=== PATIENT | male | born 1955 | race Caucasian/White ===

== ENCOUNTER → 2017-04-12 | Outpatient (CLI) | payer OTHER ==
[2017-04-12 17:09] LABS: BUN/Creatinine Ratio 13.6; Calcium 9.3 mg/dL (8.5-10.1); Potassium 4.7 mmol/L (3.5-5.1)
[2017-04-12 17:19] LABS: B-Type Natriuretic Peptide 12.72 pg/mL (0-100)
== END | disposition home or self-care (01) ==
LOC: LAB 11:22
PROVIDERS: ATTEND Internal Medicine Cardiovascular Disease
DX: I10 Essential (primary) hypertension (principal); I50.9 Heart failure, unspecified
CPT/HCPCS: 36415; 80048; 83880

== ENCOUNTER → 2017-04-27 | Outpatient (CLI) | payer OTHER | END | disposition home or self-care (01) | LOC: Rad HDHVI 15:39 | PROVIDERS: ATTEND Internal Medicine Cardiovascular Disease | DX: I73.9 Peripheral vascular disease, unspecified (principal); E78.2 Mixed hyperlipidemia | CPT/HCPCS: 93306; 93880; 93926 ==

== ENCOUNTER → 2017-08-16 | Outpatient (CLI) | payer OTHER | END | disposition home or self-care (01) | LOC: Rad HDHVI 11:32 | PROVIDERS: ATTEND Internal Medicine Cardiovascular Disease | DX: D71 Functional disorders of polymorphonuclear neutrophils (principal); R91.8 Other nonspecific abnormal finding of lung field | CPT/HCPCS: 71020 ==

== ENCOUNTER → 2017-09-02 | Outpatient (CLI) | payer OTHER ==
[2017-09-02 15:59] LABS: Urine Blood Negative /uL (Negative); Urine Specific Gravity 1.021 (1.001-1.035)
[2017-09-02 16:11] LABS: Alanine Aminotransferase 52 U/L (16-61); Albumin 3.4 g/dL (3.4-5.0); Alkaline Phosphatase 41 U/L (45-117); Anion Gap 15 (5-15); Aspartate Aminotransferase 34 U/L (15-37); BUN/Creatinine Ratio 14.8; Bilirubin, Direct < 0.1 mg/dL (0-0.2); Bilirubin, Total 0.3 mg/dL (0.2-1.0); Blood Urea Nitrogen 23 mg/dL (7-18); Calcium 9.1 mg/dL (8.5-10.1); Carbon Dioxide 21 mmol/L (21-32); Chloride 103 mmol/L (98-107); Cholesterol 178 mg/dL (< 200); GFR African American 59 mL/min; GFR Non-African American 49 mL/min; Glucose 164 mg/dL (74-106); HDL Cholesterol 39 mg/dL (40-59); Potassium 4.4 mmol/L (3.5-5.1); Sodium 139 mmol/L (136-145); Total Protein 7.2 g/dL (6.4-8.2); Triglycerides 590 mg/dL (< 150)
== END | disposition home or self-care (01) ==
LOC: LAB 08:00
PROVIDERS: ATTEND Internal Medicine Cardiovascular Disease
DX: I10 Essential (primary) hypertension (principal); E11.9 Type 2 diabetes mellitus without complications; E78.00 Pure hypercholesterolemia, unspecified; D64.9 Anemia, unspecified; E03.9 Hypothyroidism, unspecified; E55.9 Vitamin D deficiency, unspecified; R53.81 Other malaise; R97.20 Elevated prostate specific antigen [PSA]; K74.1 Hepatic sclerosis; N39.0 Urinary tract infection, site not specified
CPT/HCPCS: 36415; 80048; 80061; 80076; 81003; 82306; 83036; 84153; 84403; 84443

== ENCOUNTER → 2017-12-29 | Outpatient (CLI) | payer OTHER ==
[~2017-12-29] MED LIST: IOHEXOL 350 MG/ML 100ML IJ ONE; SODIUM CHLORIDE 0.9% 1,000 ML IV SCH
[2017-12-29 11:05] VITALS: BP 149/84
[2017-12-29 12:45] VITALS: BP 152/88
[2017-12-29 16:07] LABS: Urine Blood Negative /uL (Negative); Urine Specific Gravity 1.034 (1.001-1.035)
[2017-12-29 16:20] LABS: Basophils # (auto) 0 uL; Basophils % (auto) 0.7 % (0.0-2.0); Eosinophils # (auto) 0 uL; Eosinophils % (auto) 0.8 % (0.0-7.0); Hematocrit 32.5 % (41.0-53.0); Hemoglobin 11.4 g/dL (13.5-17.5); Lymphocytes # (auto) 0.8 uL; Lymphocytes % (auto) 11.9 % (10.0-50.0); Mean Corpuscular Hemoglobin 33.2 pg (28.0-32.0); Mean Corpuscular Hgb Conc. 35.2 g/dL (32.0-36.0); Mean Corpuscular Volume 94.3 fL (80.0-100.0); Monocytes # (auto) 0.7 uL; Neutrophils # (auto) 4.9 uL; Neutrophils % (auto) 75.6 % (37.0-80.0); Nucleated Red Blood Cells % 0.2 %; Platelet Count (auto) 166 10^3/uL (140-450); Red Blood Cells 3.44 10^6/uL (4.5-5.90); Red Cell Distribution Width 14.6 % (11.8-14.3); White Blood Cell 6.5 10^3/uL (4.4-10.8)
[2017-12-29 16:25] LABS: Free T4 (Free Thyroxine) 0.8 ng/dL (0.89-1.76)
[2017-12-29 16:27] LABS: Albumin 3.2 g/dL (3.4-5.0); BUN/Creatinine Ratio 12.6; Bilirubin, Total 0.4 mg/dL (0.2-1.0); Calcium 8.7 mg/dL (8.5-10.1); Potassium 4.7 mmol/L (3.5-5.1); Total Protein 6.9 g/dL (6.4-8.2)
== END | disposition home or self-care (01) ==
LOC: Rad HDHVI 10:49
PROVIDERS: ATTEND Internal Medicine
DX: E78.5 Hyperlipidemia, unspecified (principal); D64.9 Anemia, unspecified; I10 Essential (primary) hypertension; E11.9 Type 2 diabetes mellitus without complications; E55.9 Vitamin D deficiency, unspecified; E03.9 Hypothyroidism, unspecified; R53.81 Other malaise; R97.20 Elevated prostate specific antigen [PSA]; D51.9 Vitamin B12 deficiency anemia, unspecified; N39.0 Urinary tract infection, site not specified; R51 Headache
CPT/HCPCS: 36415; 70470; 80053; 80061; 81003; 82306; 82565; 82607; 82962; 83036; 84403; 84439; 84443; 85025; 96360; G0463; Q9967

== ENCOUNTER → 2018-01-25 | Outpatient (CLI) | payer OTHER | END | disposition home or self-care (01) | LOC: LAB 11:13 | PROVIDERS: ATTEND Internal Medicine Cardiovascular Disease | DX: D35.2 Benign neoplasm of pituitary gland (principal); E11.9 Type 2 diabetes mellitus without complications; I10 Essential (primary) hypertension; E78.5 Hyperlipidemia, unspecified; E03.9 Hypothyroidism, unspecified | CPT/HCPCS: 84146 ==

== ENCOUNTER → 2018-05-06 | Outpatient (CLI) | payer OTHER ==
[2018-05-06 12:57] LABS: Albumin 3.7 g/dL (3.4-5.0); BUN/Creatinine Ratio 16.5; Bilirubin, Total 0.3 mg/dL (0.2-1.0); Potassium 4.3 mmol/L (3.5-5.1); Uric Acid 6.6 mg/dL (3.5-7.2)
== END | disposition home or self-care (01) ==
LOC: LAB 09:09
PROVIDERS: ATTEND Internal Medicine
DX: M10.9 Gout, unspecified (principal); E11.9 Type 2 diabetes mellitus without complications; I10 Essential (primary) hypertension
CPT/HCPCS: 36415; 80053; 83036; 84550

== ENCOUNTER → 2018-06-28 | Outpatient (CLI) | payer OTHER ==
[2018-06-28 12:32] LABS: Calcium 9.1 mg/dL (8.5-10.1); Potassium 4.3 mmol/L (3.5-5.1)
[2018-06-28 12:36] LABS: BUN/Creatinine Ratio 9.8
== END | disposition home or self-care (01) ==
LOC: LAB 09:19
PROVIDERS: ATTEND Internal Medicine
DX: E11.9 Type 2 diabetes mellitus without complications (principal); I10 Essential (primary) hypertension
CPT/HCPCS: 36415; 80048; 83036

== ENCOUNTER → 2019-06-26 | Outpatient (CLI) | payer OTHER ==
[2019-06-26 16:02] LABS: Urine Blood Negative /uL (Negative); Urine Specific Gravity 1.007 (1.001-1.035)
[2019-06-26 16:12] LABS: Basophils # (auto) 0.1 uL; Basophils % (auto) 1.3 % (0.0-2.0); Eosinophils # (auto) 0.2 uL; Hematocrit 41.4 % (41.0-53.0); Hemoglobin 14.1 g/dL (13.5-17.5); Lymphocytes # (auto) 1.7 uL; Lymphocytes % (auto) 22.5 % (10.0-50.0); Mean Corpuscular Hgb Conc. 34.2 g/dL (32.0-36.0); Mean Corpuscular Volume 93.8 fL (80.0-100.0); Monocytes # (auto) 0.8 uL; Neutrophils # (auto) 4.9 uL; Neutrophils % (auto) 64.2 % (37.0-80.0); Nucleated Red Blood Cells % 0.3 %; Platelet Count (auto) 211 10^3/uL (140-450); Red Blood Cells 4.41 10^6/uL (4.5-5.90); Red Cell Distribution Width 15.6 % (11.8-14.3); White Blood Cell 7.7 10^3/uL (4.4-10.8)
[2019-06-26 16:26] LABS: Free T4 (Free Thyroxine) 0.92 ng/dL (0.89-1.76); Prostate Specific Antigen 0.36 ng/mL (0.0-4.0)
[2019-06-26 16:28] LABS: Alanine Aminotransferase 59 U/L (16-61); Albumin 3.6 g/dL (3.4-5.0); Alkaline Phosphatase 52 U/L (45-117); Anion Gap 10 (5-15); Aspartate Aminotransferase 38 U/L (15-37); BUN/Creatinine Ratio 13.8; Bilirubin, Total 0.3 mg/dL (0.2-1.0); Blood Urea Nitrogen 22 mg/dL (7-18); Calcium 9.4 mg/dL (8.5-10.1); Carbon Dioxide 20 mmol/L (21-32); Chloride 108 mmol/L (98-107); Cholesterol 183 mg/dL (< 200); GFR African American 56 mL/min; GFR Non-African American 47 mL/min; Glucose 115 mg/dL (74-106); HDL Cholesterol 40 mg/dL (40-59); Potassium 4.5 mmol/L (3.5-5.1); Sodium 138 mmol/L (136-145); Triglycerides 528 mg/dL (< 150)
== END | disposition home or self-care (01) ==
LOC: LAB 13:06
PROVIDERS: ATTEND Internal Medicine Cardiovascular Disease
DX: Z00.00 Encounter for general adult medical examination without abnormal findings (principal); E11.9 Type 2 diabetes mellitus without complications; E03.9 Hypothyroidism, unspecified; K90.9 Intestinal malabsorption, unspecified; C61 Malignant neoplasm of prostate; E29.1 Testicular hypofunction; N39.0 Urinary tract infection, site not specified; D51.9 Vitamin B12 deficiency anemia, unspecified; Z79.899 Other long term (current) drug therapy
CPT/HCPCS: 36415; 80053; 80061; 81003; 82306; 82607; 83036; 84153; 84403; 84439; 84443; 85025

== ENCOUNTER → 2019-06-27 | Outpatient (CLI) | payer OTHER ==
[~2019-06-27] MED LIST changes: -SODIUM CHLORIDE 0.9% 1,000 ML IV SCH; +SODIUM CHLORIDE 0.9% 500 ML IV ONE
[2019-06-27 09:00] VITALS: BP 132/79
--- NOTE | 2019-06-27 09:24 | NUR ---
CHF PT ARRIVED AT THE CHF CLINIC FOR HYDRATION DUE TO HIGH CREATINE ON 06/26/19 OF 1.6. PT IS ALSO TAKING METFORMIN AND WAS ADVISED LAST NIGHT TO HOLD IT AND HYDRATE, PT VERBALIZED UNDERSTANDING. VSS
--- NOTE | 2019-06-27 09:30 | NUR ---
IV insertion IV access obtained, via clean sterile technique by inserting 20 gauge catheter at after attempt(s). IV secured properly. No trauma to site. Patient tolerated procedure well.
--- NOTE | 2019-06-27 10:27 | NUR ---
EDUCATION QASIM RN DISCUSSING COMPLETE MEDICAL HISTORY WITH PT, PLAN OF CARE, DISEASE PROCESS AND FURTHER TREATMENT PLAN. PT VERBALIZED UNDERSTANDING
--- NOTE | 2019-06-27 11:23 | NUR ---
IV removal IV DC'd with sterile technique, catheter fully intact. Pressure dressing applied to site. Patient tolerated procedure well. Discharged with aftercare instructions per MD. NOTE:
[2019-06-27 11:28] VITALS: BP 133/80
--- NOTE | 2019-06-27 11:28 | NUR ---
Discharge Instructions See e-MAR for any mediations given with this visit. Patient education given on disease process. Patient verbalized understanding. Previous labs reviewed. Patient discharged in stable condition with after care instructions and follow up appointment. MEDICATIONS NS IV
== END | disposition home or self-care (01) ==
LOC: Rad HDHVI 08:25
PROVIDERS: ATTEND Internal Medicine Cardiovascular Disease
DX: I11.0 Hypertensive heart disease with heart failure (principal); I50.9 Heart failure, unspecified; R94.4 Abnormal results of kidney function studies; E78.00 Pure hypercholesterolemia, unspecified; E11.9 Type 2 diabetes mellitus without complications; E03.9 Hypothyroidism, unspecified; C61 Malignant neoplasm of prostate; Z79.899 Other long term (current) drug therapy; Z87.891 Personal history of nicotine dependence
CPT/HCPCS: 36415; 82565; 83880; 93306; 96360; 96361; G0463; J7040; Q9967

== ENCOUNTER → 2019-07-05 | Outpatient (CLI) | payer OTHER ==
[~2019-07-05] VITALS: Ht 188 cm; Wt 134.3 kg
[~2019-07-05] MED LIST changes: +ADENOSINE 113 MG in GIVE UN-DILUTED 0 ML IV ONE; +ADENOSINE 90 MG/30 ML INJ IV ONE; -IOHEXOL 350 MG/ML 100ML IJ ONE; -SODIUM CHLORIDE 0.9% 500 ML IV ONE
== END | disposition home or self-care (01) ==
LOC: Rad HDHVI 09:32
PROVIDERS: ATTEND Internal Medicine Cardiovascular Disease
DX: E11.9 Type 2 diabetes mellitus without complications (principal); I10 Essential (primary) hypertension; E78.00 Pure hypercholesterolemia, unspecified; F17.200 Nicotine dependence, unspecified, uncomplicated
CPT/HCPCS: 78452; 93005; 96374; 96375; A9500; J0153

== ENCOUNTER → 2020-03-22 | Outpatient (CLI) | payer OTHER ==
[~2020-03-22] MED LIST changes: -ADENOSINE 113 MG in GIVE UN-DILUTED 0 ML IV ONE; -ADENOSINE 90 MG/30 ML INJ IV ONE; +ALPR0.25 PO; +FURO40TA4 PO; +HYDR-4833 PO; +LISI40TA11 PO; +METF-370 PO; +METO-6 PO; +PRAV20TA3 PO
== END | disposition home or self-care (01) ==
LOC: Rad HDHVI 12:59
PROVIDERS: ATTEND Internal Medicine Cardiovascular Disease
DX: R16.0 Hepatomegaly, not elsewhere classified (principal); D73.89 Other diseases of spleen; K57.30 Diverticulosis of large intestine without perforation or abscess without bleeding; J84.10 Pulmonary fibrosis, unspecified; R39.89 Other symptoms and signs involving the genitourinary system
CPT/HCPCS: 74176

== ENCOUNTER → 2020-03-26 | Outpatient (CLI) | payer OTHER ==
[2020-03-26 14:26] LABS: Urine Blood Negative /uL (Negative); Urine Specific Gravity 1.011 (1.001-1.035)
== END | disposition home or self-care (01) ==
LOC: LAB 14:09
PROVIDERS: ATTEND Internal Medicine Cardiovascular Disease
DX: N39.0 Urinary tract infection, site not specified (principal)
CPT/HCPCS: 81003

== ENCOUNTER → 2020-04-29 | Outpatient (CLI) | payer OTHER ==
[2020-04-29 09:30] VITALS: BP 123/68
--- NOTE | 2020-04-29 09:30 | NUR ---
CLINIC PT ARRIVED TO THE CHF CLINIC FOR PRE OP EKG, LABS, AND CXR, A/OX4, AMBULATORY. BREATHING IS EVEN AND UNLABORED.
--- NOTE | 2020-04-29 09:46 | NUR ---
EKG DONE BY RENU FOLEY REVIEWED BY DAVINA DOHERTY SR 65
[2020-04-29 09:55] VITALS: BP 113/61
--- NOTE | 2020-04-29 09:55 | NUR ---
Pre-Op Discharge Summary: See e-MAR for any medications given for this visit. Pre-op orders received and carried out per MD of EKG, LABS and chest xrays. Patient given a copy of EKG with instructions to go to [facility] out patient for further follow up care. NOTE EKG DONE BY RENU FOLEY REVIEWED BY DAVINA DOHERTY
[2020-04-29 12:23] LABS: Basophils # (auto) 0.1 10 ^3/uL (0-0.2); Basophils % (auto) 1.5 % (0.0-2.0); Eosinophils # (auto) 0.3 10 ^3/uL (0-0.8); Eosinophils % (auto) 4.2 % (0.0-7.0); Hematocrit 40.8 % (41.0-53.0); Hemoglobin 13.6 g/dL (13.5-17.5); Lymphocytes % (auto) 26.8 % (10.0-50.0); Mean Corpuscular Hemoglobin 31.7 pg (28.0-32.0); Mean Corpuscular Hgb Conc. 33.4 g/dL (32.0-36.0); Mean Corpuscular Volume 94.9 fL (80.0-100.0); Monocytes # (auto) 0.8 10 ^3/uL (0-1.3); Neutrophils # (auto) 4.1 10 ^3/uL (1.6-8.6); Neutrophils % (auto) 56.5 % (37.0-80.0); Nucleated Red Blood Cells % 0.1 %; Platelet Count (auto) 208 10^3/uL (140-450); Red Cell Distribution Width 15.3 % (11.8-14.3); White Blood Cell 7.3 10^3/uL (4.4-10.8)
[2020-04-29 12:38] LABS: INR 0.95 (0.9-1.15); Partial Thromboplastin Time 27.2 sec (23.0-31.2)
[2020-04-29 12:46] LABS: BUN/Creatinine Ratio 14.2; Calcium 9.4 mg/dL (8.5-10.1); Potassium 4.3 mmol/L (3.5-5.1)
== END | disposition home or self-care (01) ==
LOC: Rad HDHVI 09:20
PROVIDERS: ATTEND Internal Medicine Cardiovascular Disease
DX: Z01.812 Encounter for preprocedural laboratory examination (principal); R91.1 Solitary pulmonary nodule; J84.10 Pulmonary fibrosis, unspecified; I20.0 Unstable angina; I50.9 Heart failure, unspecified; I70.0 Atherosclerosis of aorta
CPT/HCPCS: 36415; 71046; 80048; 85025; 85610; 85730; 93005; G0463

== ENCOUNTER 2020-05-02 07:07 | Day surgery (SDC) | payer OTHER ==
[2020-05-02] MEDS ORDERED: IOHEXOL 350 MG/ML 100ML IJ ONE (07:59)
[2020-05-02] MEDS ORDERED: LIDOCAINE 2%HCL (LOCAL ANESTH.) INJ 20ML MDV ONE (07:59)
[2020-05-02] MEDS ORDERED: ANGIOMAX 250 MG VIAL IV ONE (09:01)
[2020-05-02] MEDS ORDERED: fentaNYL CITRATE 100 MCG/2 ML VL ONE (09:02)
[2020-05-02] MEDS ORDERED: MIDAZOLAM HCL 1MG/1ML-2 ML VIAL ONE (09:02)
[2020-05-02] MEDS ORDERED: SODIUM CHL 0.9% 50 ML ONE (09:10)
[2020-05-02] MEDS ORDERED: NITROGLYCERIN 5MG/ML 10ML VIAL IV ONE (09:11)
[2020-05-02] MEDS ORDERED: ATROPINE SULF 1 MG/10ml SYR ONE (09:31)
[2020-05-02] MEDS ORDERED: ACETAMINOPHEN 500 MG TAB PO PRN (10:15)
[2020-05-02] MEDS ORDERED: ONDANSETRON HCL 4 MG/2 ML VIAL IV PRN (10:15)
[2020-05-02] MEDS ORDERED: HYDROcodone-ACET 5/325MG TAB PO PRN (10:15)
== END 2020-05-02 12:05 | disposition home or self-care (01) ==
LOC: CATH 07:07
PROVIDERS: ATTEND Internal Medicine Cardiovascular Disease
DX: R06.02 Shortness of breath (principal); E11.40 Type 2 diabetes mellitus with diabetic neuropathy, unspecified; E78.5 Hyperlipidemia, unspecified; G47.33 Obstructive sleep apnea (adult) (pediatric); F17.210 Nicotine dependence, cigarettes, uncomplicated; E11.22 Type 2 diabetes mellitus with diabetic chronic kidney disease; I13.0 Hypertensive heart and chronic kidney disease with heart failure and stage 1 through stage 4 chronic kidney disease, or unspecified chronic kidney disease; N18.3 Chronic kidney disease, stage 3 (moderate); Z20.828 Contact with and (suspected) exposure to other viral communicable diseases; Z79.899 Other long term (current) drug therapy; Z98.890 Other specified postprocedural states
CPT/HCPCS: 36415; 87426; 93458; C1760; C1894; J1644; J2250; J3010; J7030; Q9967; 99152; J3490

== ENCOUNTER → 2020-10-08 | Outpatient (CLI) | payer OTHER | END | disposition home or self-care (01) | LOC: Rad HDHVI 14:18 | PROVIDERS: ATTEND Internal Medicine Cardiovascular Disease | DX: R94.4 Abnormal results of kidney function studies (principal) | CPT/HCPCS: 36415; 82565 ==

== ENCOUNTER → 2020-10-09 | Outpatient (CLI) | payer OTHER ==
[~2020-10-09] MED LIST changes: +IOHEXOL 350 MG/ML 100ML IJ ONE; +SODIUM CHLORIDE 0.9% 500 ML IV ONE
[2020-10-09 15:05] VITALS: BP 132/75
[2020-10-09 17:09] VITALS: BP 128/66
== END | disposition home or self-care (01) ==
LOC: Rad HDHVI 14:59
PROVIDERS: ATTEND Internal Medicine Cardiovascular Disease
DX: R51.9 Headache, unspecified (principal); R94.4 Abnormal results of kidney function studies
CPT/HCPCS: 70470; 96360; G0463; J7040; Q9967

== ENCOUNTER → 2020-11-26 | Outpatient (CLI) | payer OTHER ==
[~2020-11-26] MED LIST changes: -IOHEXOL 350 MG/ML 100ML IJ ONE; -SODIUM CHLORIDE 0.9% 500 ML IV ONE
[2020-11-26 12:04] LABS: Urine Blood TRACE /uL (Negative); Urine Specific Gravity 1.016 (1.001-1.035)
[2020-11-26 12:06] LABS: Potassium 4.5 mmol/L (3.5-5.1)
[2020-11-26 12:09] LABS: Basophils # (auto) 0.1 10 ^3/uL (0-0.2); Eosinophils # (auto) 0.2 10 ^3/uL (0-0.8); Eosinophils % (auto) 3.5 % (0.0-7.0); Hematocrit 38.1 % (41.0-53.0); Hemoglobin 13.4 g/dL (13.5-17.5); Lymphocytes # (auto) 1.5 10 ^3/uL (0.4-5.4); Lymphocytes % (auto) 21.6 % (10.0-50.0); Mean Corpuscular Hemoglobin 32.6 pg (28.0-32.0); Mean Corpuscular Hgb Conc. 35.3 g/dL (32.0-36.0); Mean Corpuscular Volume 92.5 fL (80.0-100.0); Monocytes # (auto) 0.8 10 ^3/uL (0-1.3); Monocytes % (auto) 11.9 % (0.0-12.0); Neutrophils # (auto) 4.3 10 ^3/uL (1.6-8.6); Nucleated Red Blood Cells % 0.3 %; Platelet Count (auto) 185 10^3/uL (140-450); Red Blood Cells 4.12 10^6/uL (4.5-5.90); Red Cell Distribution Width 14.2 % (11.8-14.3); White Blood Cell 7.1 10^3/uL (4.4-10.8)
[2020-11-26 12:14] LABS: Free T4 (Free Thyroxine) 0.96 ng/dL (0.89-1.76); Prostate Specific Antigen 0.26 ng/mL (0.0-4.0)
[2020-11-26 12:20] LABS: Albumin 3.4 g/dL (3.4-5.0); Bilirubin, Total 0.4 mg/dL (0.2-1.0); Calcium 9.1 mg/dL (8.5-10.1); Total Protein 7.4 g/dL (6.4-8.2)
== END | disposition home or self-care (01) ==
LOC: LAB 09:18
PROVIDERS: ATTEND Internal Medicine Cardiovascular Disease
DX: C61 Malignant neoplasm of prostate (principal); D51.3 Other dietary vitamin B12 deficiency anemia; D64.9 Anemia, unspecified; E11.9 Type 2 diabetes mellitus without complications; E55.9 Vitamin D deficiency, unspecified; I10 Essential (primary) hypertension; R00.2 Palpitations; R53.1 Weakness; R30.0 Dysuria
CPT/HCPCS: 36415; 80053; 80061; 81003; 82306; 82607; 83036; 84153; 84403; 84439; 84443; 85025

== ENCOUNTER → 2021-07-02 | Outpatient (CLI) | payer MEDICARE, OTHER | END | disposition home or self-care (01) | LOC: Rad HDHVI 15:56 | PROVIDERS: ATTEND Internal Medicine Cardiovascular Disease | DX: I70.201 Unspecified atherosclerosis of native arteries of extremities, right leg (principal); E78.5 Hyperlipidemia, unspecified; R60.0 Localized edema | CPT/HCPCS: 93925 ==

== ENCOUNTER → 2021-08-11 | Outpatient (CLI) | payer MEDICARE, OTHER ==
[2021-08-11 12:21] VITALS: BP 153/84
[2021-08-11 12:56] VITALS: BP 129/86
== END | disposition home or self-care (01) ==
LOC: CHF HDHVI 11:00
PROVIDERS: ATTEND Internal Medicine Cardiovascular Disease
DX: I25.758 Atherosclerosis of native coronary artery of transplanted heart with other forms of angina pectoris (principal); I50.42 Chronic combined systolic (congestive) and diastolic (congestive) heart failure
CPT/HCPCS: G0166

== ENCOUNTER → 2021-08-13 | Outpatient (CLI) | payer MEDICARE, OTHER ==
[2021-08-13 11:54] VITALS: BP 125/81
[2021-08-13 12:08] VITALS: BP 129/84
== END | disposition home or self-care (01) ==
LOC: CHF HDHVI 11:06
PROVIDERS: ATTEND Internal Medicine Cardiovascular Disease
DX: I25.758 Atherosclerosis of native coronary artery of transplanted heart with other forms of angina pectoris (principal); I11.0 Hypertensive heart disease with heart failure; I50.42 Chronic combined systolic (congestive) and diastolic (congestive) heart failure; E11.21 Type 2 diabetes mellitus with diabetic nephropathy; E11.42 Type 2 diabetes mellitus with diabetic polyneuropathy; E66.9 Obesity, unspecified; L98.499 Non-pressure chronic ulcer of skin of other sites with unspecified severity; R06.02 Shortness of breath; I73.9 Peripheral vascular disease, unspecified; Z98.61 Coronary angioplasty status
CPT/HCPCS: G0166

== ENCOUNTER → 2021-08-14 | Outpatient (CLI) | payer MEDICARE, OTHER ==
[2021-08-14 11:54] VITALS: BP 143/86
[2021-08-14 12:07] VITALS: BP 148/94
== END | disposition home or self-care (01) ==
LOC: CHF HDHVI 10:57
PROVIDERS: ATTEND Internal Medicine Cardiovascular Disease
DX: I25.758 Atherosclerosis of native coronary artery of transplanted heart with other forms of angina pectoris (principal); I11.0 Hypertensive heart disease with heart failure; I50.42 Chronic combined systolic (congestive) and diastolic (congestive) heart failure; E11.21 Type 2 diabetes mellitus with diabetic nephropathy; E11.42 Type 2 diabetes mellitus with diabetic polyneuropathy; E66.9 Obesity, unspecified; I73.9 Peripheral vascular disease, unspecified; R06.02 Shortness of breath; L98.499 Non-pressure chronic ulcer of skin of other sites with unspecified severity; Z98.61 Coronary angioplasty status
CPT/HCPCS: G0166

== ENCOUNTER → 2021-08-15 | Outpatient (CLI) | payer MEDICARE, OTHER ==
[2021-08-15 12:02] VITALS: BP 111/72
[2021-08-15 12:13] VITALS: BP 133/80
== END | disposition home or self-care (01) ==
LOC: CHF HDHVI 10:55
PROVIDERS: ATTEND Internal Medicine Cardiovascular Disease
DX: I25.758 Atherosclerosis of native coronary artery of transplanted heart with other forms of angina pectoris (principal); I11.0 Hypertensive heart disease with heart failure; I50.42 Chronic combined systolic (congestive) and diastolic (congestive) heart failure; E11.21 Type 2 diabetes mellitus with diabetic nephropathy; E11.42 Type 2 diabetes mellitus with diabetic polyneuropathy; E66.9 Obesity, unspecified; L98.499 Non-pressure chronic ulcer of skin of other sites with unspecified severity; I73.9 Peripheral vascular disease, unspecified; Z98.61 Coronary angioplasty status
CPT/HCPCS: G0166

== ENCOUNTER → 2021-08-18 | Outpatient (CLI) | payer MEDICARE, OTHER ==
[2021-08-18 11:42] VITALS: BP 154/83
[2021-08-18 12:01] VITALS: BP 150/91
== END | disposition home or self-care (01) ==
LOC: CHF HDHVI 10:58
PROVIDERS: ATTEND Internal Medicine Cardiovascular Disease
DX: I25.718 Atherosclerosis of autologous vein coronary artery bypass graft(s) with other forms of angina pectoris (principal); I50.43 Acute on chronic combined systolic (congestive) and diastolic (congestive) heart failure
CPT/HCPCS: G0166

== ENCOUNTER → 2021-08-20 | Outpatient (CLI) | payer MEDICARE, OTHER ==
[2021-08-20 09:44] VITALS: BP 140/86
[2021-08-20 10:15] VITALS: BP 138/75
== END | disposition home or self-care (01) ==
LOC: CHF HDHVI 08:57
PROVIDERS: ATTEND Internal Medicine Cardiovascular Disease
DX: I25.758 Atherosclerosis of native coronary artery of transplanted heart with other forms of angina pectoris (principal); I11.0 Hypertensive heart disease with heart failure; I50.42 Chronic combined systolic (congestive) and diastolic (congestive) heart failure; E11.21 Type 2 diabetes mellitus with diabetic nephropathy; E11.42 Type 2 diabetes mellitus with diabetic polyneuropathy; E66.9 Obesity, unspecified; L98.499 Non-pressure chronic ulcer of skin of other sites with unspecified severity; I73.9 Peripheral vascular disease, unspecified; R06.02 Shortness of breath; Z98.61 Coronary angioplasty status
CPT/HCPCS: G0166

== ENCOUNTER → 2021-08-22 | Outpatient (CLI) | payer MEDICARE, OTHER ==
[2021-08-22 14:34] VITALS: BP 150/89
[2021-08-22 15:06] VITALS: BP 131/77
== END | disposition home or self-care (01) ==
LOC: CHF HDHVI 13:59
PROVIDERS: ATTEND Internal Medicine Cardiovascular Disease
DX: I25.758 Atherosclerosis of native coronary artery of transplanted heart with other forms of angina pectoris (principal); I11.0 Hypertensive heart disease with heart failure; I50.42 Chronic combined systolic (congestive) and diastolic (congestive) heart failure; E11.21 Type 2 diabetes mellitus with diabetic nephropathy; E11.42 Type 2 diabetes mellitus with diabetic polyneuropathy; E66.9 Obesity, unspecified; L98.499 Non-pressure chronic ulcer of skin of other sites with unspecified severity; R06.02 Shortness of breath; I73.9 Peripheral vascular disease, unspecified; Z98.61 Coronary angioplasty status
CPT/HCPCS: G0166

== ENCOUNTER → 2021-08-25 | Outpatient (CLI) | payer MEDICARE, OTHER ==
[2021-08-25 12:27] VITALS: BP 129/73
[2021-08-25 12:33] VITALS: BP 120/68
== END | disposition home or self-care (01) ==
LOC: CHF HDHVI 11:03
PROVIDERS: ATTEND Internal Medicine Cardiovascular Disease
DX: I25.758 Atherosclerosis of native coronary artery of transplanted heart with other forms of angina pectoris (principal); I11.0 Hypertensive heart disease with heart failure; I50.42 Chronic combined systolic (congestive) and diastolic (congestive) heart failure; E11.21 Type 2 diabetes mellitus with diabetic nephropathy; E11.42 Type 2 diabetes mellitus with diabetic polyneuropathy; E66.9 Obesity, unspecified; L98.499 Non-pressure chronic ulcer of skin of other sites with unspecified severity; R06.02 Shortness of breath; I73.9 Peripheral vascular disease, unspecified; Z98.61 Coronary angioplasty status
CPT/HCPCS: G0166

== ENCOUNTER → 2021-09-03 | Outpatient (CLI) | payer MEDICARE, OTHER ==
[2021-09-03 15:51] VITALS: BP 131/75
[2021-09-03 15:56] VITALS: BP 144/90
== END | disposition home or self-care (01) ==
LOC: CHF HDHVI 14:08
PROVIDERS: ATTEND Internal Medicine Cardiovascular Disease
DX: I25.758 Atherosclerosis of native coronary artery of transplanted heart with other forms of angina pectoris (principal); I11.0 Hypertensive heart disease with heart failure; I50.42 Chronic combined systolic (congestive) and diastolic (congestive) heart failure; E11.42 Type 2 diabetes mellitus with diabetic polyneuropathy; E66.9 Obesity, unspecified; L98.499 Non-pressure chronic ulcer of skin of other sites with unspecified severity; R06.02 Shortness of breath; I73.9 Peripheral vascular disease, unspecified; Z98.61 Coronary angioplasty status
CPT/HCPCS: G0166

== ENCOUNTER → 2021-09-04 | Outpatient (CLI) | payer MEDICARE, OTHER ==
[2021-09-04 11:54] VITALS: BP 144/86
[2021-09-04 12:22] VITALS: BP 127/86
== END | disposition home or self-care (01) ==
LOC: CHF HDHVI 11:08
PROVIDERS: ATTEND Internal Medicine Cardiovascular Disease
DX: I25.758 Atherosclerosis of native coronary artery of transplanted heart with other forms of angina pectoris (principal); I11.0 Hypertensive heart disease with heart failure; I50.42 Chronic combined systolic (congestive) and diastolic (congestive) heart failure; E11.21 Type 2 diabetes mellitus with diabetic nephropathy; E11.42 Type 2 diabetes mellitus with diabetic polyneuropathy; I73.9 Peripheral vascular disease, unspecified; E66.9 Obesity, unspecified; L98.499 Non-pressure chronic ulcer of skin of other sites with unspecified severity; Z98.61 Coronary angioplasty status
CPT/HCPCS: G0166

== ENCOUNTER → 2021-09-08 | Outpatient (CLI) | payer MEDICARE, OTHER ==
[2021-09-08 12:07] VITALS: BP 148/84
[2021-09-08 12:24] VITALS: BP 162/90
== END | disposition home or self-care (01) ==
LOC: CHF HDHVI 11:07
PROVIDERS: ATTEND Internal Medicine Cardiovascular Disease
DX: I25.758 Atherosclerosis of native coronary artery of transplanted heart with other forms of angina pectoris (principal); I11.0 Hypertensive heart disease with heart failure; I50.42 Chronic combined systolic (congestive) and diastolic (congestive) heart failure; E11.21 Type 2 diabetes mellitus with diabetic nephropathy; E11.42 Type 2 diabetes mellitus with diabetic polyneuropathy; E66.9 Obesity, unspecified; L98.499 Non-pressure chronic ulcer of skin of other sites with unspecified severity; R06.02 Shortness of breath; I73.9 Peripheral vascular disease, unspecified; Z98.61 Coronary angioplasty status
CPT/HCPCS: G0166

== ENCOUNTER → 2021-09-10 | Outpatient (CLI) | payer MEDICARE, OTHER ==
[2021-09-10 12:00] VITALS: BP 149/89
[2021-09-10 12:09] VITALS: BP 122/81
== END | disposition home or self-care (01) ==
LOC: CHF HDHVI 10:57
PROVIDERS: ATTEND Internal Medicine Cardiovascular Disease
DX: I25.758 Atherosclerosis of native coronary artery of transplanted heart with other forms of angina pectoris (principal); I11.0 Hypertensive heart disease with heart failure; I50.42 Chronic combined systolic (congestive) and diastolic (congestive) heart failure; E11.21 Type 2 diabetes mellitus with diabetic nephropathy; E11.42 Type 2 diabetes mellitus with diabetic polyneuropathy; E66.9 Obesity, unspecified; L98.499 Non-pressure chronic ulcer of skin of other sites with unspecified severity; I73.9 Peripheral vascular disease, unspecified; R06.02 Shortness of breath; Z98.61 Coronary angioplasty status
CPT/HCPCS: G0166

== ENCOUNTER → 2021-09-11 | Outpatient (CLI) | payer MEDICARE, OTHER ==
[2021-09-11 11:34] VITALS: BP 134/76
[2021-09-11 12:37] VITALS: BP 137/79
== END | disposition home or self-care (01) ==
LOC: CHF HDHVI 11:03
PROVIDERS: ATTEND Internal Medicine Cardiovascular Disease
DX: I25.758 Atherosclerosis of native coronary artery of transplanted heart with other forms of angina pectoris (principal); I11.0 Hypertensive heart disease with heart failure; I50.42 Chronic combined systolic (congestive) and diastolic (congestive) heart failure; E11.21 Type 2 diabetes mellitus with diabetic nephropathy; E11.42 Type 2 diabetes mellitus with diabetic polyneuropathy; E66.9 Obesity, unspecified; L98.499 Non-pressure chronic ulcer of skin of other sites with unspecified severity; R06.02 Shortness of breath; Z98.61 Coronary angioplasty status
CPT/HCPCS: G0166

== ENCOUNTER → 2021-09-12 | Outpatient (CLI) | payer MEDICARE, OTHER ==
[2021-09-12 11:36] VITALS: BP 134/67
[2021-09-12 12:08] VITALS: BP 135/71
== END | disposition home or self-care (01) ==
LOC: CHF HDHVI 10:50
PROVIDERS: ATTEND Internal Medicine Cardiovascular Disease
DX: I25.758 Atherosclerosis of native coronary artery of transplanted heart with other forms of angina pectoris (principal); I11.0 Hypertensive heart disease with heart failure; I50.42 Chronic combined systolic (congestive) and diastolic (congestive) heart failure; E11.21 Type 2 diabetes mellitus with diabetic nephropathy; E11.42 Type 2 diabetes mellitus with diabetic polyneuropathy; E66.9 Obesity, unspecified; L98.499 Non-pressure chronic ulcer of skin of other sites with unspecified severity; R06.02 Shortness of breath; I73.9 Peripheral vascular disease, unspecified; Z98.61 Coronary angioplasty status
CPT/HCPCS: G0166

== ENCOUNTER → 2021-09-15 | Outpatient (CLI) | payer MEDICARE, OTHER ==
[2021-09-15 11:58] VITALS: BP 159/93
[2021-09-15 12:12] VITALS: BP 146/86
== END | disposition home or self-care (01) ==
LOC: CHF HDHVI 11:12
PROVIDERS: ATTEND Internal Medicine Cardiovascular Disease
DX: I11.0 Hypertensive heart disease with heart failure (principal); I25.758 Atherosclerosis of native coronary artery of transplanted heart with other forms of angina pectoris; I50.42 Chronic combined systolic (congestive) and diastolic (congestive) heart failure; E11.21 Type 2 diabetes mellitus with diabetic nephropathy; E11.42 Type 2 diabetes mellitus with diabetic polyneuropathy; E66.9 Obesity, unspecified; L98.499 Non-pressure chronic ulcer of skin of other sites with unspecified severity; I73.9 Peripheral vascular disease, unspecified; Z98.61 Coronary angioplasty status
CPT/HCPCS: G0166

== ENCOUNTER → 2021-09-17 | Outpatient (CLI) | payer MEDICARE, OTHER ==
[2021-09-17 11:50] VITALS: BP 140/80
[2021-09-17 12:23] VITALS: BP 147/80
== END | disposition home or self-care (01) ==
LOC: CHF HDHVI 11:11
PROVIDERS: ATTEND Internal Medicine Cardiovascular Disease
DX: I25.758 Atherosclerosis of native coronary artery of transplanted heart with other forms of angina pectoris (principal); I11.0 Hypertensive heart disease with heart failure; I50.42 Chronic combined systolic (congestive) and diastolic (congestive) heart failure; E11.21 Type 2 diabetes mellitus with diabetic nephropathy; E11.42 Type 2 diabetes mellitus with diabetic polyneuropathy; E66.9 Obesity, unspecified; L98.499 Non-pressure chronic ulcer of skin of other sites with unspecified severity; R06.02 Shortness of breath; I73.9 Peripheral vascular disease, unspecified; Z98.61 Coronary angioplasty status
CPT/HCPCS: G0166

== ENCOUNTER → 2021-09-19 | Outpatient (CLI) | payer MEDICARE, OTHER ==
[2021-09-19 11:48] VITALS: BP 148/83
[2021-09-19 12:22] VITALS: BP 137/71
== END | disposition home or self-care (01) ==
LOC: CHF HDHVI 11:14
PROVIDERS: ATTEND Internal Medicine Cardiovascular Disease
DX: I25.758 Atherosclerosis of native coronary artery of transplanted heart with other forms of angina pectoris (principal); I11.0 Hypertensive heart disease with heart failure; I50.42 Chronic combined systolic (congestive) and diastolic (congestive) heart failure; E11.21 Type 2 diabetes mellitus with diabetic nephropathy; E11.42 Type 2 diabetes mellitus with diabetic polyneuropathy; L98.499 Non-pressure chronic ulcer of skin of other sites with unspecified severity; E66.9 Obesity, unspecified; I73.9 Peripheral vascular disease, unspecified; Z98.61 Coronary angioplasty status
CPT/HCPCS: G0166

== ENCOUNTER → 2021-09-22 | Outpatient (CLI) | payer MEDICARE, OTHER ==
[2021-09-22 12:11] VITALS: BP 140/82
[2021-09-22 12:35] VITALS: BP 145/88
== END | disposition home or self-care (01) ==
LOC: CHF HDHVI 10:58
PROVIDERS: ATTEND Internal Medicine Cardiovascular Disease
DX: I25.758 Atherosclerosis of native coronary artery of transplanted heart with other forms of angina pectoris (principal); I11.0 Hypertensive heart disease with heart failure; I50.42 Chronic combined systolic (congestive) and diastolic (congestive) heart failure; L98.499 Non-pressure chronic ulcer of skin of other sites with unspecified severity; E11.21 Type 2 diabetes mellitus with diabetic nephropathy; E11.42 Type 2 diabetes mellitus with diabetic polyneuropathy; I73.9 Peripheral vascular disease, unspecified; E66.9 Obesity, unspecified; Z98.61 Coronary angioplasty status
CPT/HCPCS: G0166

== ENCOUNTER → 2021-10-08 | Outpatient (CLI) | payer MEDICARE, OTHER ==
[2021-10-08 11:47] VITALS: BP 134/74
[2021-10-08 12:20] VITALS: BP 138/87
== END | disposition home or self-care (01) ==
LOC: CHF HDHVI 11:19
PROVIDERS: ATTEND Internal Medicine Cardiovascular Disease
DX: I25.758 Atherosclerosis of native coronary artery of transplanted heart with other forms of angina pectoris (principal); L97.909 Non-pressure chronic ulcer of unspecified part of unspecified lower leg with unspecified severity; I50.42 Chronic combined systolic (congestive) and diastolic (congestive) heart failure; I10 Essential (primary) hypertension; E11.21 Type 2 diabetes mellitus with diabetic nephropathy; E11.42 Type 2 diabetes mellitus with diabetic polyneuropathy; E66.9 Obesity, unspecified; R06.02 Shortness of breath; I73.9 Peripheral vascular disease, unspecified
CPT/HCPCS: G0166

== ENCOUNTER → 2021-10-09 | Outpatient (CLI) | payer MEDICARE, OTHER ==
[2021-10-09 11:34] VITALS: BP 141/80
[2021-10-09 12:07] VITALS: BP 150/90
== END | disposition home or self-care (01) ==
LOC: CHF HDHVI 11:05
PROVIDERS: ATTEND Internal Medicine Cardiovascular Disease
DX: I25.758 Atherosclerosis of native coronary artery of transplanted heart with other forms of angina pectoris (principal); I11.0 Hypertensive heart disease with heart failure; I50.42 Chronic combined systolic (congestive) and diastolic (congestive) heart failure; E66.9 Obesity, unspecified; I73.9 Peripheral vascular disease, unspecified; R06.02 Shortness of breath; L98.499 Non-pressure chronic ulcer of skin of other sites with unspecified severity; E11.21 Type 2 diabetes mellitus with diabetic nephropathy; E11.42 Type 2 diabetes mellitus with diabetic polyneuropathy; Z98.61 Coronary angioplasty status
CPT/HCPCS: G0166

== ENCOUNTER → 2021-10-10 | Outpatient (CLI) | payer MEDICARE, OTHER ==
[2021-10-10 11:45] VITALS: BP 141/76
[2021-10-10 12:28] VITALS: BP 131/83
== END | disposition home or self-care (01) ==
LOC: CHF HDHVI 11:12
PROVIDERS: ATTEND Internal Medicine Cardiovascular Disease
DX: I25.758 Atherosclerosis of native coronary artery of transplanted heart with other forms of angina pectoris (principal); I11.0 Hypertensive heart disease with heart failure; I50.42 Chronic combined systolic (congestive) and diastolic (congestive) heart failure; E11.21 Type 2 diabetes mellitus with diabetic nephropathy; E11.42 Type 2 diabetes mellitus with diabetic polyneuropathy; E66.9 Obesity, unspecified; I73.9 Peripheral vascular disease, unspecified; L98.499 Non-pressure chronic ulcer of skin of other sites with unspecified severity; R06.02 Shortness of breath; Z98.61 Coronary angioplasty status
CPT/HCPCS: G0166

== ENCOUNTER → 2021-10-13 | Outpatient (CLI) | payer MEDICARE, OTHER ==
[2021-10-13 11:56] VITALS: BP 147/88
[2021-10-13 12:13] VITALS: BP 138/78
== END | disposition home or self-care (01) ==
LOC: CHF HDHVI 11:05
PROVIDERS: ATTEND Internal Medicine Cardiovascular Disease
DX: I11.0 Hypertensive heart disease with heart failure (principal); I50.42 Chronic combined systolic (congestive) and diastolic (congestive) heart failure; I25.758 Atherosclerosis of native coronary artery of transplanted heart with other forms of angina pectoris; I73.9 Peripheral vascular disease, unspecified; E11.21 Type 2 diabetes mellitus with diabetic nephropathy; E11.42 Type 2 diabetes mellitus with diabetic polyneuropathy; E66.9 Obesity, unspecified; L98.499 Non-pressure chronic ulcer of skin of other sites with unspecified severity; Z98.61 Coronary angioplasty status
CPT/HCPCS: G0166

== ENCOUNTER → 2021-10-15 | Outpatient (CLI) | payer MEDICARE, OTHER ==
[2021-10-15 15:49] VITALS: BP 152/84
[2021-10-15 15:54] VITALS: BP 143/73
== END | disposition home or self-care (01) ==
LOC: CHF HDHVI 11:03
PROVIDERS: ATTEND Internal Medicine Cardiovascular Disease
DX: I11.0 Hypertensive heart disease with heart failure (principal); I50.42 Chronic combined systolic (congestive) and diastolic (congestive) heart failure; E11.21 Type 2 diabetes mellitus with diabetic nephropathy; E11.42 Type 2 diabetes mellitus with diabetic polyneuropathy; E66.9 Obesity, unspecified; L98.499 Non-pressure chronic ulcer of skin of other sites with unspecified severity; R06.02 Shortness of breath; I73.9 Peripheral vascular disease, unspecified; I25.758 Atherosclerosis of native coronary artery of transplanted heart with other forms of angina pectoris; Z98.61 Coronary angioplasty status
CPT/HCPCS: G0166

== ENCOUNTER → 2021-10-16 | Outpatient (CLI) | payer MEDICARE, OTHER ==
[2021-10-16 11:45] VITALS: BP 145/84
[2021-10-16 12:17] VITALS: BP 134/81
== END | disposition home or self-care (01) ==
LOC: CHF HDHVI 10:59
PROVIDERS: ATTEND Internal Medicine Cardiovascular Disease
DX: I11.0 Hypertensive heart disease with heart failure (principal); I50.42 Chronic combined systolic (congestive) and diastolic (congestive) heart failure; I25.758 Atherosclerosis of native coronary artery of transplanted heart with other forms of angina pectoris; E11.21 Type 2 diabetes mellitus with diabetic nephropathy; E11.42 Type 2 diabetes mellitus with diabetic polyneuropathy; E66.9 Obesity, unspecified; L98.499 Non-pressure chronic ulcer of skin of other sites with unspecified severity; I73.9 Peripheral vascular disease, unspecified; Z98.61 Coronary angioplasty status
CPT/HCPCS: G0166

== ENCOUNTER → 2021-10-17 | Outpatient (CLI) | payer MEDICARE, OTHER ==
[2021-10-17 11:35] VITALS: BP 141/83
[2021-10-17 12:20] VITALS: BP 141/81
== END | disposition home or self-care (01) ==
LOC: CHF HDHVI 10:57
PROVIDERS: ATTEND Internal Medicine Cardiovascular Disease
DX: I11.0 Hypertensive heart disease with heart failure (principal); I50.42 Chronic combined systolic (congestive) and diastolic (congestive) heart failure; I25.758 Atherosclerosis of native coronary artery of transplanted heart with other forms of angina pectoris; E11.21 Type 2 diabetes mellitus with diabetic nephropathy; E11.42 Type 2 diabetes mellitus with diabetic polyneuropathy; E66.9 Obesity, unspecified; L98.499 Non-pressure chronic ulcer of skin of other sites with unspecified severity; I73.9 Peripheral vascular disease, unspecified; Z98.61 Coronary angioplasty status
CPT/HCPCS: G0166

== ENCOUNTER → 2021-10-20 | Outpatient (CLI) | payer MEDICARE, OTHER ==
[2021-10-20 12:15] VITALS: BP 144/79
[2021-10-20 12:52] VITALS: BP 139/80
== END | disposition home or self-care (01) ==
LOC: CHF HDHVI 11:16
PROVIDERS: ATTEND Internal Medicine Cardiovascular Disease
DX: I11.0 Hypertensive heart disease with heart failure (principal); I50.42 Chronic combined systolic (congestive) and diastolic (congestive) heart failure; I25.758 Atherosclerosis of native coronary artery of transplanted heart with other forms of angina pectoris; E11.42 Type 2 diabetes mellitus with diabetic polyneuropathy; E11.21 Type 2 diabetes mellitus with diabetic nephropathy; L98.499 Non-pressure chronic ulcer of skin of other sites with unspecified severity; Z98.61 Coronary angioplasty status; E66.9 Obesity, unspecified; I73.9 Peripheral vascular disease, unspecified
CPT/HCPCS: G0166

== ENCOUNTER → 2021-10-22 | Outpatient (CLI) | payer MEDICARE, OTHER ==
[2021-10-22 11:36] VITALS: BP 145/84
[2021-10-22 12:20] VITALS: BP 146/84
== END | disposition home or self-care (01) ==
LOC: CHF HDHVI 11:03
PROVIDERS: ATTEND Internal Medicine Cardiovascular Disease
DX: I11.0 Hypertensive heart disease with heart failure (principal); I50.42 Chronic combined systolic (congestive) and diastolic (congestive) heart failure; I25.758 Atherosclerosis of native coronary artery of transplanted heart with other forms of angina pectoris; E11.21 Type 2 diabetes mellitus with diabetic nephropathy; E11.42 Type 2 diabetes mellitus with diabetic polyneuropathy; I73.9 Peripheral vascular disease, unspecified; E66.9 Obesity, unspecified; L98.499 Non-pressure chronic ulcer of skin of other sites with unspecified severity
CPT/HCPCS: G0166

== ENCOUNTER → 2021-10-23 | Outpatient (CLI) | payer MEDICARE, OTHER ==
[2021-10-23 11:48] VITALS: BP 163/88
[2021-10-23 12:01] VITALS: BP 141/83
== END | disposition home or self-care (01) ==
LOC: CHF HDHVI 10:59
PROVIDERS: ATTEND Internal Medicine Cardiovascular Disease
DX: I11.0 Hypertensive heart disease with heart failure (principal); I50.42 Chronic combined systolic (congestive) and diastolic (congestive) heart failure; I25.758 Atherosclerosis of native coronary artery of transplanted heart with other forms of angina pectoris; E11.21 Type 2 diabetes mellitus with diabetic nephropathy; E11.42 Type 2 diabetes mellitus with diabetic polyneuropathy; E66.9 Obesity, unspecified; L98.499 Non-pressure chronic ulcer of skin of other sites with unspecified severity; I73.9 Peripheral vascular disease, unspecified; Z98.61 Coronary angioplasty status
CPT/HCPCS: G0166

== ENCOUNTER → 2021-10-24 | Outpatient (CLI) | payer MEDICARE, OTHER ==
[2021-10-24 12:09] VITALS: BP 134/82
[2021-10-24 12:17] VITALS: BP 140/84
== END | disposition home or self-care (01) ==
LOC: CHF HDHVI 11:01
PROVIDERS: ATTEND Internal Medicine Cardiovascular Disease
DX: I11.0 Hypertensive heart disease with heart failure (principal); I50.42 Chronic combined systolic (congestive) and diastolic (congestive) heart failure; I25.758 Atherosclerosis of native coronary artery of transplanted heart with other forms of angina pectoris; I73.9 Peripheral vascular disease, unspecified; E11.21 Type 2 diabetes mellitus with diabetic nephropathy; E11.42 Type 2 diabetes mellitus with diabetic polyneuropathy; E66.9 Obesity, unspecified; L98.499 Non-pressure chronic ulcer of skin of other sites with unspecified severity; Z98.61 Coronary angioplasty status
CPT/HCPCS: G0166

== ENCOUNTER → 2021-10-30 | Outpatient (CLI) | payer MEDICARE, OTHER ==
[2021-10-30 11:49] VITALS: BP 142/84
[2021-10-30 12:20] VITALS: BP 138/84
== END | disposition home or self-care (01) ==
LOC: CHF HDHVI 11:06
PROVIDERS: ATTEND Internal Medicine Cardiovascular Disease
DX: I25.758 Atherosclerosis of native coronary artery of transplanted heart with other forms of angina pectoris (principal); I11.0 Hypertensive heart disease with heart failure; I50.42 Chronic combined systolic (congestive) and diastolic (congestive) heart failure; E11.21 Type 2 diabetes mellitus with diabetic nephropathy; E11.42 Type 2 diabetes mellitus with diabetic polyneuropathy; E66.9 Obesity, unspecified; L98.499 Non-pressure chronic ulcer of skin of other sites with unspecified severity; R06.02 Shortness of breath; I73.9 Peripheral vascular disease, unspecified; Z98.61 Coronary angioplasty status
CPT/HCPCS: G0166

== ENCOUNTER → 2021-11-05 | Outpatient (CLI) | payer MEDICARE, OTHER ==
[2021-11-05 12:34] VITALS: BP 170/98
[2021-11-05 12:40] VITALS: BP 176/100
== END | disposition home or self-care (01) ==
LOC: CHF HDHVI 11:08
PROVIDERS: ATTEND Internal Medicine Cardiovascular Disease
DX: I11.0 Hypertensive heart disease with heart failure (principal); I50.42 Chronic combined systolic (congestive) and diastolic (congestive) heart failure; I25.758 Atherosclerosis of native coronary artery of transplanted heart with other forms of angina pectoris; E11.21 Type 2 diabetes mellitus with diabetic nephropathy; E11.41 Type 2 diabetes mellitus with diabetic mononeuropathy; E66.9 Obesity, unspecified; L98.499 Non-pressure chronic ulcer of skin of other sites with unspecified severity; I73.9 Peripheral vascular disease, unspecified; Z98.61 Coronary angioplasty status
CPT/HCPCS: G0166

== ENCOUNTER → 2021-11-06 | Outpatient (CLI) | payer MEDICARE, OTHER ==
[2021-11-06 12:19] VITALS: BP 142/90
[2021-11-06 12:33] VITALS: BP 150/92
== END | disposition home or self-care (01) ==
LOC: CHF HDHVI 11:03
PROVIDERS: ATTEND Internal Medicine Cardiovascular Disease
DX: I11.0 Hypertensive heart disease with heart failure (principal); I50.42 Chronic combined systolic (congestive) and diastolic (congestive) heart failure; I25.758 Atherosclerosis of native coronary artery of transplanted heart with other forms of angina pectoris; I73.9 Peripheral vascular disease, unspecified; E11.42 Type 2 diabetes mellitus with diabetic polyneuropathy; E11.21 Type 2 diabetes mellitus with diabetic nephropathy; E66.9 Obesity, unspecified; L98.499 Non-pressure chronic ulcer of skin of other sites with unspecified severity; Z96.81 Presence of artificial skin
CPT/HCPCS: G0166

== ENCOUNTER → 2021-11-07 | Outpatient (CLI) | payer MEDICARE, OTHER ==
[2021-11-07 12:28] VITALS: BP 152/84
[2021-11-07 12:49] VITALS: BP 152/84
== END | disposition home or self-care (01) ==
LOC: CHF HDHVI 11:02
PROVIDERS: ATTEND Internal Medicine Cardiovascular Disease
DX: I11.0 Hypertensive heart disease with heart failure (principal); I50.42 Chronic combined systolic (congestive) and diastolic (congestive) heart failure; I25.758 Atherosclerosis of native coronary artery of transplanted heart with other forms of angina pectoris; E11.21 Type 2 diabetes mellitus with diabetic nephropathy; E11.42 Type 2 diabetes mellitus with diabetic polyneuropathy; I73.9 Peripheral vascular disease, unspecified; E66.9 Obesity, unspecified; L98.499 Non-pressure chronic ulcer of skin of other sites with unspecified severity; Z98.61 Coronary angioplasty status
CPT/HCPCS: G0166

== ENCOUNTER → 2021-11-10 | Outpatient (CLI) | payer MEDICARE, OTHER ==
[2021-11-10 12:44] VITALS: BP 140/84
[2021-11-10 12:52] VITALS: BP 138/80
== END | disposition home or self-care (01) ==
LOC: CHF HDHVI 11:08
PROVIDERS: ATTEND Internal Medicine Cardiovascular Disease
DX: I11.0 Hypertensive heart disease with heart failure (principal); I50.42 Chronic combined systolic (congestive) and diastolic (congestive) heart failure; I25.758 Atherosclerosis of native coronary artery of transplanted heart with other forms of angina pectoris; I73.9 Peripheral vascular disease, unspecified; E11.21 Type 2 diabetes mellitus with diabetic nephropathy; E11.42 Type 2 diabetes mellitus with diabetic polyneuropathy; E66.9 Obesity, unspecified; L98.499 Non-pressure chronic ulcer of skin of other sites with unspecified severity; Z98.61 Coronary angioplasty status
CPT/HCPCS: G0166

== ENCOUNTER → 2022-01-01 | Outpatient (CLI) | payer MEDICARE, OTHER | END | disposition home or self-care (01) | LOC: LAB 14:48 | PROVIDERS: ATTEND Internal Medicine Cardiovascular Disease | DX: R94.4 Abnormal results of kidney function studies (principal) | CPT/HCPCS: 36415; 82565; 84520 ==

== ENCOUNTER → 2022-01-02 | Outpatient (CLI) | payer MEDICARE, OTHER ==
[~2022-01-02] MED LIST changes: +IOHEXOL 350 MG/ML 100ML IJ ONE; +SODIUM CHLORIDE 0.9% 500 ML IV ONE
[2022-01-02 10:16] VITALS: BP 164/75
[2022-01-02 10:50] VITALS: BP 140/76
[2022-01-02 11:24] VITALS: BP 134/83
[2022-01-02 11:40] VITALS: BP 168/89
[2022-01-02 12:18] VITALS: BP 156/84
[2022-01-02 12:40] VITALS: BP 142/79
== END | disposition home or self-care (01) ==
LOC: Rad HDHVI 10:11
PROVIDERS: ATTEND Internal Medicine Cardiovascular Disease
DX: E86.0 Dehydration (principal); R94.4 Abnormal results of kidney function studies; I11.0 Hypertensive heart disease with heart failure; I50.42 Chronic combined systolic (congestive) and diastolic (congestive) heart failure; E11.21 Type 2 diabetes mellitus with diabetic nephropathy; E11.42 Type 2 diabetes mellitus with diabetic polyneuropathy; I25.10 Atherosclerotic heart disease of native coronary artery without angina pectoris; E78.5 Hyperlipidemia, unspecified
CPT/HCPCS: 71275; 96360; 96361; G0463; J7040; Q9967

== ENCOUNTER → 2022-01-14 | Outpatient (CLI) | payer MEDICARE, OTHER ==
[~2022-01-14] MED LIST changes: -IOHEXOL 350 MG/ML 100ML IJ ONE; -SODIUM CHLORIDE 0.9% 500 ML IV ONE
== END | disposition home or self-care (01) ==
LOC: Rad HDHVI 08:07
PROVIDERS: ATTEND Internal Medicine Cardiovascular Disease
DX: I51.7 Cardiomegaly (principal); R06.02 Shortness of breath; R00.2 Palpitations
CPT/HCPCS: 93306

== ENCOUNTER → 2022-04-27 | Outpatient (CLI) | payer MEDICARE, OTHER | END | disposition home or self-care (01) | LOC: Rad HDHVI 08:13 | PROVIDERS: ATTEND Internal Medicine Cardiovascular Disease | DX: I65.22 Occlusion and stenosis of left carotid artery (principal); R07.9 Chest pain, unspecified; I10 Essential (primary) hypertension | CPT/HCPCS: 93880 ==

== ENCOUNTER → 2022-04-29 | Outpatient (CLI) | payer MEDICARE, OTHER ==
[2022-04-29 11:58] LABS: Basophils # (auto) 0.1 10 ^3/uL (0-0.2); Eosinophils # (auto) 0.1 10 ^3/uL (0-0.8); Eosinophils % (auto) 2.2 % (0.0-7.0); Hematocrit 32.1 % (41.0-53.0); Hemoglobin 10.1 g/dL (13.5-17.5); Mean Corpuscular Hemoglobin 25.7 pg (28.0-32.0); Monocytes # (auto) 0.9 10 ^3/uL (0-1.3); Neutrophils # (auto) 4.4 10 ^3/uL (1.6-8.6); Red Blood Cells 3.94 10^6/uL (4.5-5.90)
[2022-04-29 12:02] LABS: BUN/Creatinine Ratio 11.5; Calcium 9.5 mg/dL (8.5-10.1); Potassium 4.9 mmol/L (3.5-5.1)
[2022-04-29 12:04] LABS: Lymphocytes # (auto) 0.9 10 ^3/uL (0.4-5.4); Lymphocytes % (auto) 14.5 % (10.0-50.0); Mean Corpuscular Hgb Conc. 31.6 g/dL (32.0-36.0); Mean Corpuscular Volume 81.4 fL (80.0-100.0); Monocytes % (auto) 13.9 % (0.0-12.0); Neutrophils % (auto) 68.4 % (37.0-80.0); Red Cell Distribution Width 18.4 % (11.8-14.3); White Blood Cell 6.4 10^3/uL (4.4-10.8)
== END | disposition home or self-care (01) ==
LOC: LAB 10:10
PROVIDERS: ATTEND Internal Medicine Cardiovascular Disease
DX: I10 Essential (primary) hypertension (principal); D64.9 Anemia, unspecified; K92.2 Gastrointestinal hemorrhage, unspecified
CPT/HCPCS: 36415; 80048; 85025; 85045

== ENCOUNTER → 2022-05-13 | Outpatient (CLI) | payer MEDICARE, OTHER | END | disposition home or self-care (01) | LOC: Rad HDHVI 08:37 | PROVIDERS: ATTEND Internal Medicine Cardiovascular Disease | DX: I82.402 Acute embolism and thrombosis of unspecified deep veins of left lower extremity (principal); R60.9 Edema, unspecified | CPT/HCPCS: 93971 ==

== ENCOUNTER → 2022-05-15 | Outpatient (CLI) | payer MEDICARE, OTHER | END | disposition home or self-care (01) | LOC: Rad HDHVI 13:49 | PROVIDERS: ATTEND Internal Medicine Cardiovascular Disease | DX: M89.572 Osteolysis, left ankle and foot (principal); M25.475 Effusion, left foot; M86.8X7 Other osteomyelitis, ankle and foot | CPT/HCPCS: 73630 ==

== ENCOUNTER → 2022-05-25 | Outpatient (CLI) | payer MEDICARE, OTHER ==
[~2022-05-25] MED LIST changes: +LIDOCAINE 1% (LOCAL ANESTH.) PF 5ml SDV ID ONE
== END | disposition home or self-care (01) ==
LOC: XYW 12:04
PROVIDERS: ATTEND Internal Medicine Cardiovascular Disease
DX: J98.11 Atelectasis (principal); I70.0 Atherosclerosis of aorta; M47.814 Spondylosis without myelopathy or radiculopathy, thoracic region
CPT/HCPCS: 36569; 71045; C1751; J7050

== ENCOUNTER → 2022-07-02 | Outpatient (CLI) | payer MEDICARE, OTHER ==
[~2022-07-02] MED LIST changes: -LIDOCAINE 1% (LOCAL ANESTH.) PF 5ml SDV ID ONE
[2022-07-02 12:07] LABS: Basophils # (auto) 0.1 10 ^3/uL (0-0.2); Basophils % (auto) 2.1 % (0.0-2.0); Eosinophils # (auto) 0.3 10 ^3/uL (0-0.8); Eosinophils % (auto) 5.5 % (0.0-7.0); Hematocrit 33.4 % (41.0-53.0); Hemoglobin 10.8 g/dL (13.5-17.5); Lymphocytes # (auto) 1.2 10 ^3/uL (0.4-5.4); Lymphocytes % (auto) 23.9 % (10.0-50.0); Mean Corpuscular Hemoglobin 28.3 pg (28.0-32.0); Mean Corpuscular Hgb Conc. 32.4 g/dL (32.0-36.0); Mean Corpuscular Volume 87.4 fL (80.0-100.0); Monocytes # (auto) 0.7 10 ^3/uL (0-1.3); Monocytes % (auto) 14.4 % (0.0-12.0); Neutrophils # (auto) 2.6 10 ^3/uL (1.6-8.6); Neutrophils % (auto) 54.1 % (37.0-80.0); Nucleated Red Blood Cells % 0.1 %; Red Blood Cells 3.82 10^6/uL (4.5-5.90); Red Cell Distribution Width 19.3 % (11.8-14.3); White Blood Cell 4.8 10^3/uL (4.4-10.8)
== END | disposition home or self-care (01) ==
LOC: LAB 08:51
PROVIDERS: ATTEND Internal Medicine Cardiovascular Disease
DX: D51.9 Vitamin B12 deficiency anemia, unspecified (principal)
CPT/HCPCS: 36415; 82728; 83540; 85025; 85045

== ENCOUNTER → 2022-07-08 | Outpatient (CLI) | payer MEDICARE, OTHER ==
[~2022-07-08] MED LIST changes: +SODIUM FERR GLUC 62.5MG/5ML 125 MG in SODIUM CHL 0.9% 100 ML IV ONE; +SODIUM FERRIC GLUC CPLEX 62.5MG/5ML VIAL IV ONE
[2022-07-08 10:38] VITALS: BP 127/44
[2022-07-08 12:01] VITALS: BP 127/67
== END | disposition home or self-care (01) ==
LOC: CHF HDHVI 10:42
PROVIDERS: ATTEND Internal Medicine Cardiovascular Disease
DX: D50.9 Iron deficiency anemia, unspecified (principal); I10 Essential (primary) hypertension
CPT/HCPCS: 96365; G0463; J1642; J2916

== ENCOUNTER → 2022-07-14 | Outpatient (CLI) | payer MEDICARE, OTHER ==
[2022-07-14 09:10] VITALS: BP 127/58
[2022-07-14 10:12] LABS: Basophils # (auto) 0.2 10 ^3/uL (0-0.2); Basophils % (auto) 2.7 % (0.0-2.0); Eosinophils # (auto) 0.2 10 ^3/uL (0-0.8); Hemoglobin 11.3 g/dL (13.5-17.5); Lymphocytes # (auto) 1.5 10 ^3/uL (0.4-5.4); Lymphocytes % (auto) 24.1 % (10.0-50.0); Mean Corpuscular Hemoglobin 28.5 pg (28.0-32.0); Mean Corpuscular Hgb Conc. 32.3 g/dL (32.0-36.0); Mean Corpuscular Volume 88.2 fL (80.0-100.0); Monocytes # (auto) 0.8 10 ^3/uL (0-1.3); Monocytes % (auto) 13.2 % (0.0-12.0); Neutrophils # (auto) 3.4 10 ^3/uL (1.6-8.6); Nucleated Red Blood Cells % 0.1 %; Red Blood Cells 3.97 10^6/uL (4.5-5.90)
[2022-07-14 11:10] VITALS: BP 119/67
[2022-07-14 17:30] LABS: INR 0.97 (0.9-1.15); Partial Thromboplastin Time 32.1 sec (24.6-33.4)
== END | disposition home or self-care (01) ==
LOC: CHF HDHVI 09:16
PROVIDERS: ATTEND Internal Medicine Cardiovascular Disease
DX: R79.1 Abnormal coagulation profile (principal)
CPT/HCPCS: 36415; 85025; 85610; 85730; 96365; G0463

== ENCOUNTER → 2022-07-29 | Outpatient (CLI) | payer MEDICARE, OTHER ==
[~2022-07-29] MED LIST changes: -SODIUM FERR GLUC 62.5MG/5ML 125 MG in SODIUM CHL 0.9% 100 ML IV ONE; -SODIUM FERRIC GLUC CPLEX 62.5MG/5ML VIAL IV ONE
[2022-07-29 09:45] VITALS: BP 138/72
[2022-07-29 10:05] VITALS: BP 126/70
[2022-07-29 15:59] LABS: Basophils # (auto) 0.2 10 ^3/uL (0-0.2); Basophils % (auto) 2.8 % (0.0-2.0); Eosinophils # (auto) 0.3 10 ^3/uL (0-0.8); Eosinophils % (auto) 4.6 % (0.0-7.0); Hematocrit 38.2 % (41.0-53.0); Hemoglobin 12.5 g/dL (13.5-17.5); Lymphocytes # (auto) 1.3 10 ^3/uL (0.4-5.4); Mean Corpuscular Hemoglobin 28.8 pg (28.0-32.0); Mean Corpuscular Hgb Conc. 32.7 g/dL (32.0-36.0); Mean Corpuscular Volume 87.9 fL (80.0-100.0); Monocytes # (auto) 0.7 10 ^3/uL (0-1.3); Monocytes % (auto) 13.1 % (0.0-12.0); Neutrophils # (auto) 3.3 10 ^3/uL (1.6-8.6); Neutrophils % (auto) 57.5 % (37.0-80.0); Nucleated Red Blood Cells % 0.5 %; Red Blood Cells 4.34 10^6/uL (4.5-5.90); Red Cell Distribution Width 16.9 % (11.8-14.3); White Blood Cell 5.7 10^3/uL (4.4-10.8)
[2022-07-29 16:09] LABS: BUN/Creatinine Ratio 13.6; Calcium 9.7 mg/dL (8.5-10.1); Potassium 4.7 mmol/L (3.5-5.1)
== END | disposition home or self-care (01) ==
LOC: CHF HDHVI 09:48
PROVIDERS: ATTEND Internal Medicine Cardiovascular Disease
DX: D64.9 Anemia, unspecified (principal)
CPT/HCPCS: 36415; 80048; 85025; G0463

== ENCOUNTER → 2022-08-26 | Outpatient (CLI) | payer MEDICARE, OTHER | END | disposition home or self-care (01) | LOC: Rad HDHVI 14:59 | PROVIDERS: ATTEND Internal Medicine Cardiovascular Disease | DX: I70.203 Unspecified atherosclerosis of native arteries of extremities, bilateral legs (principal); M86.9 Osteomyelitis, unspecified | CPT/HCPCS: 93925 ==

== ENCOUNTER 2022-08-30 08:30 | Emergency (ER) | payer MEDICARE, OTHER ==
[~2022-08-30] VITALS: Ht 177.8 cm; Wt 135.0 kg
[2022-08-30 11:50] VITALS: BP 144/87
== END 2022-08-30 11:52 | disposition home or self-care (01) ==
LOC: EDBD 08:30 → ER 08:30
DX: S70.02XA Contusion of left hip, initial encounter (principal); W17.89XA Other fall from one level to another, initial encounter; Y93.89 Activity, other specified; Y92.098 Other place in other non-institutional residence as the place of occurrence of the external cause; Y99.8 Other external cause status; Z88.2 Allergy status to sulfonamides; Z79.899 Other long term (current) drug therapy
CPT/HCPCS: 73502; 93005

== ENCOUNTER 2023-05-08 09:31 | Emergency (ER) | payer MEDICARE, OTHER ==
[~2023-05-08] VITALS: Ht 188 cm; Wt 132.1 kg
[~2023-05-08 09:31] MED LIST changes: -LISI40TA11 PO; +LISI40TA16 PO
[2023-05-08 09:57] VITALS: BP 130/79; PULSE 71; RESP 16; TEMP 97.4; O2SAT 95
[2023-05-08] MEDS ORDERED: HYDR50CA PO (10:10)
[2023-05-08] MEDS ORDERED: CLIN300C70 PO (10:10)
== END 2023-05-08 10:25 | disposition home or self-care (01) ==
LOC: ER 09:31
DX: S60.466A Insect bite (nonvenomous) of right little finger, initial encounter (principal); G47.00 Insomnia, unspecified; E11.9 Type 2 diabetes mellitus without complications; E78.5 Hyperlipidemia, unspecified; I10 Essential (primary) hypertension; Z88.2 Allergy status to sulfonamides; W57.XXXA Bitten or stung by nonvenomous insect and other nonvenomous arthropods, initial encounter; Y93.89 Activity, other specified; Y92.89 Other specified places as the place of occurrence of the external cause; Y99.8 Other external cause status

== ENCOUNTER → 2023-08-09 | Outpatient (CLI) | payer MEDICARE, OTHER ==
[~2023-08-09] MED LIST changes: +CLIN300C70 PO; +HYDR50CA PO
== END | disposition home or self-care (01) ==
LOC: Rad HDHVI 10:05
PROVIDERS: ATTEND Internal Medicine Cardiovascular Disease
DX: I70.203 Unspecified atherosclerosis of native arteries of extremities, bilateral legs (principal)
CPT/HCPCS: 93925

== ENCOUNTER → 2023-08-13 | Outpatient (CLI) | payer MEDICARE, OTHER | END | disposition home or self-care (01) | LOC: Rad HDHVI 14:54 | PROVIDERS: ATTEND Internal Medicine Cardiovascular Disease | DX: I11.9 Hypertensive heart disease without heart failure (principal) | CPT/HCPCS: 93306 ==

== ENCOUNTER → 2023-09-22 | Outpatient (CLI) | payer MEDICARE, OTHER ==
[2023-09-22 10:50] VITALS: BP_SYST 132; BP_SYST 138; BP_DIAS 80; BP_DIAS 82; PULSE 77
== END | disposition home or self-care (01) ==
LOC: CHF HDHVI 09:00
PROVIDERS: ATTEND Internal Medicine Cardiovascular Disease
DX: I25.118 Atherosclerotic heart disease of native coronary artery with other forms of angina pectoris (principal); I11.0 Hypertensive heart disease with heart failure; I50.33 Acute on chronic diastolic (congestive) heart failure; E11.21 Type 2 diabetes mellitus with diabetic nephropathy; R06.02 Shortness of breath; Z88.2 Allergy status to sulfonamides; Z79.899 Other long term (current) drug therapy; Z79.84 Long term (current) use of oral hypoglycemic drugs
CPT/HCPCS: G0166

== ENCOUNTER → 2023-09-23 | Outpatient (CLI) | payer MEDICARE, OTHER ==
[2023-09-23 10:55] VITALS: BP 145/80; PULSE 80
[2023-09-23 10:56] VITALS: BP 134/74; PULSE 76
== END | disposition home or self-care (01) ==
LOC: CHF HDHVI 09:07
PROVIDERS: ATTEND Internal Medicine Cardiovascular Disease
DX: I25.118 Atherosclerotic heart disease of native coronary artery with other forms of angina pectoris (principal); R06.02 Shortness of breath; I11.9 Hypertensive heart disease without heart failure; I50.33 Acute on chronic diastolic (congestive) heart failure; E11.21 Type 2 diabetes mellitus with diabetic nephropathy; Z95.5 Presence of coronary angioplasty implant and graft; Z79.84 Long term (current) use of oral hypoglycemic drugs; Z79.899 Other long term (current) drug therapy; Z88.8 Allergy status to other drugs, medicaments and biological substances
CPT/HCPCS: G0166

== ENCOUNTER → 2023-09-24 | Outpatient (CLI) | payer MEDICARE, OTHER ==
[2023-09-24 13:12] VITALS: BP 140/81; PULSE 78
[2023-09-24 13:13] VITALS: BP 139/86; PULSE 78
== END | disposition home or self-care (01) ==
LOC: CHF HDHVI 09:05
PROVIDERS: ATTEND Internal Medicine Cardiovascular Disease
DX: I25.118 Atherosclerotic heart disease of native coronary artery with other forms of angina pectoris (principal); I11.9 Hypertensive heart disease without heart failure; I50.33 Acute on chronic diastolic (congestive) heart failure; E11.21 Type 2 diabetes mellitus with diabetic nephropathy; R06.02 Shortness of breath; Z95.5 Presence of coronary angioplasty implant and graft; Z79.899 Other long term (current) drug therapy
CPT/HCPCS: G0166

== ENCOUNTER → 2023-10-12 | Outpatient (CLI) | payer MEDICARE, OTHER ==
[2023-10-12 10:34] VITALS: BP 140/82; PULSE 81
[2023-10-12 10:35] VITALS: BP 144/86; PULSE 81
== END | disposition home or self-care (01) ==
LOC: CHF HDHVI 09:07
PROVIDERS: ATTEND Internal Medicine Cardiovascular Disease
DX: I11.0 Hypertensive heart disease with heart failure (principal); I50.33 Acute on chronic diastolic (congestive) heart failure; I25.118 Atherosclerotic heart disease of native coronary artery with other forms of angina pectoris; R06.02 Shortness of breath; E11.21 Type 2 diabetes mellitus with diabetic nephropathy
CPT/HCPCS: G0166

== ENCOUNTER → 2023-10-13 | Outpatient (CLI) | payer MEDICARE, OTHER ==
[2023-10-13 10:27] VITALS: BP 138/80; PULSE 75
[2023-10-13 10:28] VITALS: BP 140/86; PULSE 73
== END | disposition home or self-care (01) ==
LOC: CHF HDHVI 08:56
PROVIDERS: ATTEND Internal Medicine Cardiovascular Disease
DX: I25.118 Atherosclerotic heart disease of native coronary artery with other forms of angina pectoris (principal); I11.9 Hypertensive heart disease without heart failure; I50.33 Acute on chronic diastolic (congestive) heart failure; R06.02 Shortness of breath; E11.21 Type 2 diabetes mellitus with diabetic nephropathy; Z79.899 Other long term (current) drug therapy
CPT/HCPCS: G0166

== ENCOUNTER → 2023-10-14 | Outpatient (CLI) | payer MEDICARE, OTHER ==
[2023-10-14 13:28] VITALS: BP 126/80; PULSE 74
[2023-10-14 13:29] VITALS: BP 130/80; PULSE 77
== END | disposition home or self-care (01) ==
LOC: CHF HDHVI 09:12
PROVIDERS: ATTEND Internal Medicine Cardiovascular Disease
DX: I25.118 Atherosclerotic heart disease of native coronary artery with other forms of angina pectoris (principal); I11.9 Hypertensive heart disease without heart failure; I50.33 Acute on chronic diastolic (congestive) heart failure; E11.21 Type 2 diabetes mellitus with diabetic nephropathy; R06.02 Shortness of breath; Z79.899 Other long term (current) drug therapy
CPT/HCPCS: G0166

== ENCOUNTER → 2023-10-15 | Outpatient (CLI) | payer MEDICARE, OTHER ==
[2023-10-15 11:10] VITALS: BP 124/78; PULSE 79
[2023-10-15 11:11] VITALS: BP 119/78; PULSE 78
== END | disposition home or self-care (01) ==
LOC: CHF HDHVI 09:06
PROVIDERS: ATTEND Internal Medicine Cardiovascular Disease
DX: I25.118 Atherosclerotic heart disease of native coronary artery with other forms of angina pectoris (principal); I11.9 Hypertensive heart disease without heart failure; I50.33 Acute on chronic diastolic (congestive) heart failure; R06.02 Shortness of breath; E11.21 Type 2 diabetes mellitus with diabetic nephropathy; Z79.899 Other long term (current) drug therapy
CPT/HCPCS: G0166

== ENCOUNTER → 2023-10-19 | Outpatient (CLI) | payer MEDICARE, OTHER ==
[2023-10-19 13:08] VITALS: BP 136/78; PULSE 82
[2023-10-19 13:10] VITALS: BP 160/84; PULSE 99
== END | disposition home or self-care (01) ==
LOC: CHF HDHVI 09:08
PROVIDERS: ATTEND Internal Medicine Cardiovascular Disease
DX: I25.118 Atherosclerotic heart disease of native coronary artery with other forms of angina pectoris (principal); I11.9 Hypertensive heart disease without heart failure; I50.33 Acute on chronic diastolic (congestive) heart failure; E11.21 Type 2 diabetes mellitus with diabetic nephropathy; R06.02 Shortness of breath; Z79.84 Long term (current) use of oral hypoglycemic drugs; Z79.899 Other long term (current) drug therapy
CPT/HCPCS: G0166

== ENCOUNTER → 2023-10-20 | Outpatient (CLI) | payer MEDICARE, OTHER ==
[2023-10-20 14:52] VITALS: BP 125/81; PULSE 69
[2023-10-20 14:53] VITALS: BP 135/75; PULSE 72
== END | disposition home or self-care (01) ==
LOC: CHF HDHVI 09:02
PROVIDERS: ATTEND Internal Medicine Cardiovascular Disease
DX: I25.118 Atherosclerotic heart disease of native coronary artery with other forms of angina pectoris (principal); I11.0 Hypertensive heart disease with heart failure; I50.33 Acute on chronic diastolic (congestive) heart failure; R06.02 Shortness of breath
CPT/HCPCS: G0166

== ENCOUNTER → 2023-10-27 | Outpatient (CLI) | payer MEDICARE, OTHER ==
[~2023-10-27] MED LIST changes: +BACL10TA PO; +BUSP10TA31 PO; +ESOM40CA39 PO; +HEPARIN IN NS 1000Units/500mL 1,500 ML ONE; +IODIXANOL 320MG/ML 100ML BTL IV ONE; +LIDOCAINE 2%HCL (LOCAL ANESTH.) INJ 20ML MDV ONE; +LISI20TA56 PO; +METF-371 PO; +NIFE20CA PO; +PREG100C PO; +SUCR1TAB22 PO; +TADA20TA PO; +TAMS-35 PO; +TIRZ2.5I SC; +[UNRECOGNIZED DRUG - CODE] TD
[2023-10-27 09:12] VITALS: BP 144/71; PULSE 84; RESP 18; O2SAT 96
[2023-10-27 09:20] VITALS: BP 131/68; PULSE 77; RESP 18; O2SAT 96
== END | disposition home or self-care (01) ==
LOC: CHF HDHVI 09:07
PROVIDERS: ATTEND Internal Medicine Cardiovascular Disease
DX: I11.0 Hypertensive heart disease with heart failure (principal); I50.33 Acute on chronic diastolic (congestive) heart failure; I25.118 Atherosclerotic heart disease of native coronary artery with other forms of angina pectoris; R06.02 Shortness of breath
CPT/HCPCS: 93005; G0463

== ENCOUNTER 2023-10-28 07:21 | Day surgery (SDC) | payer MEDICARE, OTHER ==
[2023-10-27 11:33] LABS: Basophils # (auto) 0.1 10 ^3/uL (0-0.2); Basophils % (auto) 1.4 % (0.0-2.0); Eosinophils # (auto) 0.6 10 ^3/uL (0-0.8); Eosinophils % (auto) 6.5 % (0.0-7.0); Hematocrit 37.6 % (41.0-53.0); Hemoglobin 12.8 g/dL (13.5-17.5); Lymphocytes # (auto) 1.4 10 ^3/uL (0.4-5.4); Lymphocytes % (auto) 16.2 % (10.0-50.0); Mean Corpuscular Hemoglobin 31.2 pg (28.0-32.0); Mean Corpuscular Hgb Conc. 34.1 g/dL (32.0-36.0); Mean Corpuscular Volume 91.4 fL (80.0-100.0); Monocytes # (auto) 1.2 10 ^3/uL (0-1.3); Monocytes % (auto) 13.2 % (0.0-12.0); Neutrophils # (auto) 5.6 10 ^3/uL (1.6-8.6); Neutrophils % (auto) 62.7 % (37.0-80.0); Nucleated Red Blood Cells % 0.2 %; Red Blood Cells 4.12 10^6/uL (4.5-5.90); Red Cell Distribution Width 14.3 % (11.8-14.3); White Blood Cell 8.9 10^3/uL (4.4-10.8)
[2023-10-27 12:12] LABS: Anion Gap 8 (5-15); Carbon Dioxide 24 mmol/L (20-30); Chloride 104 mmol/L (98-107); Potassium 4.8 mmol/L (3.5-5.1); Sodium 136 mmol/L (136-145)
[2023-10-27 12:18] LABS: Blood Urea Nitrogen 29 mg/dL (9-23); Glucose 122 mg/dL (74-106)
[2023-10-27 12:29] LABS: INR 0.97 (0.9-1.15); Partial Thromboplastin Time 29.4 SEC (24.5-34.5); Prothrombin Time 10.2 sec (9.3-11.8)
[~2023-10-28] VITALS: Ht 188 cm; Wt 137.9 kg
[2023-10-28] VITALS (7 sets, daily range): BP systolic 130–144; BP diastolic 80–87; PULSE 64–72; RESP 12–14; O2SAT 98–100
[~2023-10-28 07:21] MED LIST changes: -CLIN300C70 PO; -HEPARIN IN NS 1000Units/500mL 1,500 ML ONE; -HYDR50CA PO; -IODIXANOL 320MG/ML 100ML BTL IV ONE; -LIDOCAINE 2%HCL (LOCAL ANESTH.) INJ 20ML MDV ONE; -LISI40TA16 PO; -METF-370 PO; -METF-371 PO
[2023-10-28] MEDS ORDERED: ANGIOMAX 250 MG VIAL IV ONE (08:07)
[2023-10-28] MEDS ORDERED: fentaNYL CITRATE 100 MCG/2 ML VL ONE (08:07)
[2023-10-28] MEDS ORDERED: SODIUM CHL 0.9% 0 ML ONE (08:08)
[2023-10-28] MEDS ORDERED: MIDAZOLAM HCL 2MG/2ML 2ml VIAL (1mg/ml) ONE (08:08)
== END 2023-10-28 11:51 | disposition home or self-care (01) ==
LOC: CATH 07:21
PROVIDERS: ATTEND Internal Medicine Cardiovascular Disease
DX: R07.89 Other chest pain (principal); R06.02 Shortness of breath; I25.10 Atherosclerotic heart disease of native coronary artery without angina pectoris; G47.30 Sleep apnea, unspecified; E11.40 Type 2 diabetes mellitus with diabetic neuropathy, unspecified; E11.21 Type 2 diabetes mellitus with diabetic nephropathy; E66.01 Morbid (severe) obesity due to excess calories; I10 Essential (primary) hypertension; Z79.899 Other long term (current) drug therapy; Z79.84 Long term (current) use of oral hypoglycemic drugs; N28.9 Disorder of kidney and ureter, unspecified
CPT/HCPCS: 36415; 80048; 85025; 85610; 85730; 93458; C1894; J1644; J2250; J3010; J7030; Q9967; 99152

== ENCOUNTER → 2023-11-03 | Outpatient (CLI) | payer MEDICARE, OTHER ==
[2023-11-03 16:41] VITALS: BP 130/80; PULSE 70
[2023-11-03 16:42] VITALS: BP 126/86; PULSE 76
[2023-11-04 15:26] VITALS: BP 128/78; PULSE 65
[2023-11-04 15:27] VITALS: BP 144/88; PULSE 78
[2023-11-04 15:51] VITALS: BP 130/80; PULSE 70
[2023-11-04 15:52] VITALS: BP 126/86; PULSE 76
== END | disposition home or self-care (01) ==
LOC: CHF HDHVI 09:11
PROVIDERS: ATTEND Internal Medicine Cardiovascular Disease
DX: I11.0 Hypertensive heart disease with heart failure (principal); I50.33 Acute on chronic diastolic (congestive) heart failure; I25.118 Atherosclerotic heart disease of native coronary artery with other forms of angina pectoris; R06.02 Shortness of breath; E11.21 Type 2 diabetes mellitus with diabetic nephropathy; Z98.61 Coronary angioplasty status; E11.9 Type 2 diabetes mellitus without complications
CPT/HCPCS: G0166

== ENCOUNTER → 2023-11-17 | Outpatient (CLI) | payer MEDICARE, OTHER ==
[2023-11-17 10:12] VITALS: BP 128/80; PULSE 75
[2023-11-17 10:20] VITALS: BP 124/79; PULSE 73
== END | disposition home or self-care (01) ==
LOC: CHF HDHVI 09:08
PROVIDERS: ATTEND Internal Medicine Cardiovascular Disease
DX: I25.118 Atherosclerotic heart disease of native coronary artery with other forms of angina pectoris (principal); I11.0 Hypertensive heart disease with heart failure; I50.33 Acute on chronic diastolic (congestive) heart failure; R06.02 Shortness of breath; E11.21 Type 2 diabetes mellitus with diabetic nephropathy
CPT/HCPCS: G0166

== ENCOUNTER 2024-02-28 15:51 | Emergency (ER) | payer MEDICARE, OTHER ==
[~2024-02-28] VITALS: Ht 188 cm; Wt 136.8 kg
[~2024-02-28 15:51] MED LIST changes: -SUCR1TAB22 PO; +SUCR1TAB31 PO
[2024-02-28 18:28] VITALS: BP 130/69; PULSE 100; RESP 16; TEMP 98.2; O2SAT 96
[2024-02-28] MEDS ORDERED: CEPH500C PO (18:35)
[2024-02-28] MEDS: ACETAMINOPHEN 500 MG TAB PO ONE (18:44)
== END 2024-02-28 18:35 | disposition home or self-care (01) ==
LOC: ER 15:51
DX: S60.460A Insect bite (nonvenomous) of right index finger, initial encounter (principal); L03.011 Cellulitis of right finger; I10 Essential (primary) hypertension; E11.9 Type 2 diabetes mellitus without complications; E78.5 Hyperlipidemia, unspecified; F41.9 Anxiety disorder, unspecified; Z88.2 Allergy status to sulfonamides; Z79.899 Other long term (current) drug therapy; W57.XXXA Bitten or stung by nonvenomous insect and other nonvenomous arthropods, initial encounter; Y93.89 Activity, other specified; Y92.89 Other specified places as the place of occurrence of the external cause; Y99.8 Other external cause status

== ENCOUNTER → 2024-04-19 | Outpatient (CLI) | payer MEDICARE, OTHER ==
[~2024-04-19] MED LIST changes: +CEPH500C PO; -NIFE20CA PO; +NIFE20CA13 PO
== END | disposition home or self-care (01) ==
LOC: Rad HDHVI 14:39
PROVIDERS: ATTEND Internal Medicine Cardiovascular Disease
DX: I82.403 Acute embolism and thrombosis of unspecified deep veins of lower extremity, bilateral (principal); L03.90 Cellulitis, unspecified
CPT/HCPCS: 93970

== ENCOUNTER → 2025-01-15 | Outpatient (CLI) | payer MEDICARE, OTHER | END | disposition home or self-care (01) | LOC: Rad HDHVI 10:02 | PROVIDERS: ATTEND Internal Medicine Cardiovascular Disease | DX: I35.8 Other nonrheumatic aortic valve disorders (principal); I11.0 Hypertensive heart disease with heart failure; I50.33 Acute on chronic diastolic (congestive) heart failure | CPT/HCPCS: 93306 ==

== ENCOUNTER → 2025-01-17 | Outpatient (CLI) | payer MEDICARE, OTHER | END | disposition home or self-care (01) | LOC: Rad HDHVI 10:04 | PROVIDERS: ATTEND Internal Medicine Cardiovascular Disease | DX: I10 Essential (primary) hypertension (principal); R07.89 Other chest pain | CPT/HCPCS: 93880 ==

== ENCOUNTER → 2025-01-24 | Outpatient (CLI) | payer MEDICARE, OTHER ==
[~2025-01-24] VITALS: Ht 188 cm; Wt 129.3 kg
[~2025-01-24] MED LIST changes: +ADENOSINE 109 MG in GIVE UN-DILUTED 0 ML IV ONE; +ADENOSINE 90 MG/30 ML INJ IV ONE
== END | disposition home or self-care (01) ==
LOC: Rad HDHVI 14:12
PROVIDERS: ATTEND Internal Medicine Cardiovascular Disease
DX: Z01.810 Encounter for preprocedural cardiovascular examination (principal); I13.0 Hypertensive heart and chronic kidney disease with heart failure and stage 1 through stage 4 chronic kidney disease, or unspecified chronic kidney disease; N18.30 Chronic kidney disease, stage 3 unspecified; E11.22 Type 2 diabetes mellitus with diabetic chronic kidney disease; I50.33 Acute on chronic diastolic (congestive) heart failure; I25.2 Old myocardial infarction; I82.409 Acute embolism and thrombosis of unspecified deep veins of unspecified lower extremity; R06.00 Dyspnea, unspecified; E78.00 Pure hypercholesterolemia, unspecified
CPT/HCPCS: 78452; 93017; A9500; J0153

== ENCOUNTER 2025-02-05 06:20 | Inpatient (IN) | payer MEDICARE, OTHER ==
[2025-02-02 12:37] LABS: Urine Bacteria None Seen /hpf (None Seen)
[2025-02-02 12:44] LABS: Basophils # (auto) 0.1 10 ^3/uL (0-0.2); Basophils % (auto) 1.7 % (0.0-2.0); Eosinophils # (auto) 0.4 10 ^3/uL (0-0.8); Eosinophils % (auto) 5.9 % (0.0-7.0); Hematocrit 38.7 % (41.0-53.0); Hemoglobin 13.2 g/dL (13.5-17.5); Lymphocytes # (auto) 1.2 10 ^3/uL (0.4-5.4); Lymphocytes % (auto) 18.7 % (10.0-50.0); Mean Corpuscular Hemoglobin 31.3 pg (28.0-32.0); Mean Corpuscular Hgb Conc. 34.2 g/dL (32.0-36.0); Mean Corpuscular Volume 91.6 fL (80.0-100.0); Monocytes # (auto) 0.9 10 ^3/uL (0-1.3); Monocytes % (auto) 13.9 % (0.0-12.0); Neutrophils # (auto) 3.9 10 ^3/uL (1.6-8.6); Neutrophils % (auto) 59.8 % (37.0-80.0); Platelet Count (auto) 181 10^3/uL (140-450); Red Blood Cells 4.22 10^6/uL (4.5-5.90); Red Cell Distribution Width 15.1 % (11.8-14.3); White Blood Cell 6.5 10^3/uL (4.4-10.8)
[2025-02-02 12:57] LABS: INR 0.97 (0.9-1.15); Partial Thromboplastin Time 27.6 SEC (24.5-34.5); Prothrombin Time 10.3 sec (9.3-11.8)
[2025-02-02 13:05] LABS: Alanine Aminotransferase 38 U/L (7-40); Albumin 4.6 g/dL (3.2-4.8); Alkaline Phosphatase 57 U/L (46-116); Anion Gap 7 (5-15); Aspartate Aminotransferase 22 U/L (13-40); BUN/Creatinine Ratio 18.2 (10.0-20.0); Bilirubin, Total 0.4 mg/dL (0.2-1.0); Calcium 10.2 mg/dL (8.7-10.4); Carbon Dioxide 21 mmol/L (20-31); Glucose 102 mg/dL (74-106); Potassium 4.9 mmol/L (3.5-5.1); Sodium 140 mmol/L (136-145); Total Protein 7.4 g/dL (5.7-8.2)
[2025-02-02 13:06] LABS: Blood Urea Nitrogen 40 mg/dL (9-23); Chloride 112 mmol/L (98-107)
[2025-02-02 13:38] LABS: Urine Blood Negative /uL (Negative); Urine Clarity Clear (Clear); Urine Color Light-Yellow (Yellow); Urine Protein, UAD 1+ (Negative); Urine Squamous Epithelial Cell FEW /hpf (<5); Urine Urobilinogen Normal (Negative); Urine WBC < 1 /HPF (0-3); Urine pH 5.5 (5.0-9.0)
[~2025-02-05] VITALS: Ht 182.9 cm; Wt 132.0 kg
[~2025-02-05 06:20] MED LIST changes: -ADENOSINE 109 MG in GIVE UN-DILUTED 0 ML IV ONE; -ADENOSINE 90 MG/30 ML INJ IV ONE; +ALLO300T2 PO; -CEPH500C PO; -FURO40TA4 PO; -HYDR-4833 PO; -LISI20TA56 PO; +LISI40TA16 PO; -TAMS-35 PO
[2025-02-05] MEDS: ceFAZolin 2 GM/D5W50ml 50 ML IV ONE (06:25)
[2025-02-05] MEDS: TRANEXAMIC ACID 20 ML ONE (06:52)
[2025-02-05] MEDS: VANCOMYCIN HCL 1000 MG VL ONE (06:53)
[2025-02-05] MEDS ORDERED: PROPOFOL 10 MG/ML 20 ML IV ONE (07:12)
[2025-02-05] MEDS ORDERED: fentaNYL CITRATE 100 MCG/2 ML VL ONE ×2 (07:12)
[2025-02-05] MEDS ORDERED: HYDROmorphone HCL 2 MG/ML VL/or syr ONE (07:12)
[2025-02-05] MEDS: ROPIVACAINE 0.5% (5MG/ML) 20ML AMPULE IJ ONE (07:47)
[2025-02-05] MEDS ORDERED: ceFAZolin 1GM/50ML 50 ML IV SCH (08:45)
[2025-02-05] MEDS ORDERED: NITROGLYCERIN 0.4 MG SL TAB SL PRN (08:45)
[2025-02-05] MEDS ORDERED: MORPHINE SULFATE INJ 2 MG/ml SYRG IV PRN (08:45)
[2025-02-05] MEDS ORDERED: ONDANSETRON HCL 4 MG/2 ML VIAL IV PRN (08:45)
[2025-02-05] MEDS ORDERED: ACETAMINOPHEN 325 MG TAB PO PRN (08:45)
[2025-02-05] MEDS: BUPIVACAINE 0.25% INJ 50ML VIAL ONE (09:21)
[2025-02-05] MEDS: MORPHINE SULF PF 5 MG/10 ML VIAL ONE (09:21)
[2025-02-05] MEDS: KETOROLAC TROMETH 30 MG/ML 1ML VIAL ONE (09:21)
--- NOTE | 2025-02-05 09:30 | DVHOP2 ---
Discharge Orders Discharge Orders DISCHARGE WHEN CRITERIA MET DISCHARGE WHEN CRITERIA MET. Follow up: 2 weeks Discharge Instructions: SNF Operative Rep- Outpatient Operative Report PRE-OP DIAGNOSIS: Right knee osteoarthritis POST-OP DIAGNOSIS: Same [place] protocol followed: Yes ESTIMATED BLOOD LOSS: Less than 100 cc PROCEDURE: Right total knee arthroplasty Computer navigation right total knee arthroplasty SURGEON/NET DEVELOPER WITH [facility]: Norm YANEZ ANESTHESIA: General ANESTHESIOLOGIST: INFORMED CONSENT: Informed Consent: Discussed all inherent risks, complications, and alternatives treatments with the patient. Patient has agreed to proceed with the procedure. I have reviewed all pre-operative assessments including Labs, EKGs, and radiographic images that has been performed. Patient is an appropriate candidate for the outpatient surgical center procedure. The patient is a 69-year-old male who had ongoing pain in the right knee the patient had a valgus deformity that was noted the patient was educated on the risks and benefits of surgical and nonsurgical treatment of the left lower extremity the patient understood the risks and benefits associated with surgical treatment of the left lower extremity along with a valgus deformity of the patient understood the risks and benefits of the opted for surgical treatment of the right lower extremity the patient understood the risks opted for surgical treatment The patient was seen in the preoperative holding the area of the right lower extremity was marked the patient was brought to operative suite general anesthesia was then induced and also to hospital protocol the right lower extremity was prepped and draped in the standard fashion Ancef was given for infection prophylaxis TXA was given for bleeding prophylaxis incision was made through skin subcu tissue muscle fascia down to VMO chloride junction of the medial parapatellar arthrotomy was then created once it was then created a small medial release was then created based on the valgus deformity with the with computer navigation with a 3 degree slope with a mechanical educated on medical access in the central portion with mechanical on kinematics axis in the appropriate manner attention was then turned to of the proximal tibia once I was then completed with a proximal tibial guide with 3 degree slope was then measured in the appropriate manner with computer navigation then using a central pin followed by flexion extension internal external rotation of the retreat flexion cut was then cut with a neutral syndesmotic and mechanical axis once I was then cut in the appropriate manner attention was turned to the ACL PCL the ACL was carefully removed the PCL was then left in the placed with Vicryl suture the medial and lateral meniscus were carefully removed once I was then done on a size 6 femoral component was then noted to be appropriately sized the 4 1 cutting block was then used for performed cutting plaque the posterior osteophytes were carefully removed once it was then completed in the appropriate manner a 10 mm spacer block was used followed by 13 followed by 15 mm spacer block we did attempt to minimize the bone cuts of the best of our ability however based on the valgus deformity of the both lost loaded on the lateral aspect of the knee we had to cut down to the lateral aspect bony deformity for ingrowth noted therefore that is why the proximal tibia cut was slightly more then we were open to anticipate once it was then noted with the proximal tibia cut being completed in the appropriate manner the size 6 tibial base plate was then punched and kicked in the appropriate manner after rotation was then measured after a size 6 femoral component was then placed once it was then done the size 6 femoral component was then completed the patella and rectum with all the osteophytes was carefully removed once it was then done a size 6 femoral component was punched and killed all is well all the trigone was carefully removed a size 6 tibial base plate was applied since he will followed by the 15 mm deep dish polyethylene liner followed by a size 6 femoral component I patellar neurectomy was then completed the patellar tracking was appropriate the knee was irrigated customized saline followed by irrigation with Betadine followed by vancomycin powder followed by the Ortho 2. FiberWire followed by 1. Stratafix and 90 of flexion to prevent patella baja followed by 0 Vicryl followed by 2-0 Monocryl followed by tamanna. The patient will be weight- bearing as tolerated on the left lower extremity and the right lower extremity. PT OT out of bed daily follow up in 2 weeks' time NORM LANDERS MD Feb 05, 2025 09:30
[2025-02-05] MEDS: LACTATED RINGER'S 1,000 ML IV SCH ×2 (09:45→17:04)
[2025-02-05] MEDS: ACETAMINOPHEN IV 1000 MG/100ML (10MG/ML) IV PRN (10:00)
[2025-02-05] MEDS ORDERED: ONDANSETRON HCL 4 MG/2 ML VIAL IV ONE (10:00)
[2025-02-05] MEDS ORDERED: MEPERIDINE HCL (25 MG/ML) 1ML VIAL IV PRN (10:00)
[2025-02-05] MEDS: DOCUSATE SOD 100 MG CAP PO SCH (10:00)
[2025-02-05] MEDS: HYDROmorphone HCL 2 MG/ML VL/or syr IV PRN ×2 (10:00→18:32)
[2025-02-05] MEDS: ACETAMINOPHEN IV 100 ML IV ONE (10:00)
[2025-02-05] MEDS: HYDROmorphone HCL 2 MG/ML VL/or syr ONE (10:01)
[2025-02-05] MEDS: MIDAZOLAM HCL 2MG/2ML 2ml VIAL (1mg/ml) IV PRN (10:07)
[2025-02-05] MEDS: MIDAZOLAM HCL 2MG/2ML 2ml VIAL (1mg/ml) ONE (10:07)
--- NOTE | 2025-02-05 10:48 | DVH ---
EXAM: XY R KNEE 3V XRAY CLINICAL INDICATION: S/P SURGERY TECHNIQUE: XY R KNEE 3V XRAY Comparison: None FINDINGS/IMPRESSION: There is no evidence of acute fracture or dislocation. Right total knee arthroplasty.
[2025-02-05] MEDS: OXYCODONE W/ ACETAMINOPHEN 5/325MG TABLET PO PRN (11:40)
[2025-02-05 15:30] VITALS: BP 136/79; PULSE 72; RESP 16; O2SAT 97
[2025-02-05 15:36] VITALS: BP 136/79; PULSE 72; RESP 16; TEMP 98.4; O2SAT 97
[2025-02-05] MEDS ORDERED: ALPRAZolam 0.25 MG TAB PO PRN (16:30)
[2025-02-05] MEDS ORDERED: DEXTROSE (50%) 50ML SYRG IV PRN (16:30)
--- NOTE | 2025-02-05 16:38 | DVHHP2 ---
Review of Systems Allergies: Coded Allergies: Sulfa Antibiotics (Verified Allergy, Unknown, 10/27/23) Medications Current Medications Medications Dose Ordered Sig/Juventino Route Start Time Stop Time Status Last Admin Dose Admin Lactated Ringer's 1,000 ml @ 100 mls/hr Q10H IV 02/05/25 08:45 02/05/25 09:45 100 MLS/HR Acetaminophen 650 mg Q6HP PRN PO 02/05/25 08:45 Oxycodone/ Acetaminophen 1 tab Q4HP PRN PO 02/05/25 08:45 02/05/25 11:40 1 TAB Hydromorphone HCl 1 mg Q2HP PRN IV 02/05/25 08:45 Ondansetron HCl 4 mg Q6HP PRN IV 02/05/25 08:45 Docusate Sodium 100 mg Q12HR PO 02/05/25 10:00 Nitroglycerin 0.4 mg Q5MINP PRN SL 02/05/25 08:45 Morphine Sulfate 2 mg Q30M PRN IV 02/05/25 08:45 Cefazolin Sodium 50 ml @ 50 mls/hr Q6H IV 02/05/25 16:30 02/06/25 05:29 Exam Vital Signs Vital Signs Date Time Temp Pulse Resp B/P (MAP) Pulse Ox O2 Delivery O2 Flow Rate FiO2 02/05/25 15:30 72 16 136/79 (98) 97 02/05/25 13:00 Room Air 02/05/25 10:30 2.0 02/05/25 09:47 98.0 98.0 Labs/Xrays Labs Test 02/05/25 09:56 02/02/25 12:30 Range/Units POC Glucose 128 H 70-106 mg/dl White Blood Count 6.5 4.4-10.8 10^3/uL Red Blood Count 4.22 L 4.5-5.90 10^6/uL Hemoglobin 13.2 L 13.5-17.5 g/dL Hematocrit 38.7 L 41.0-53.0 % Mean Corpuscular Volume 91.6 80.0-100.0 fL Mean Corpuscular Hemoglobin 31.3 28.0-32.0 pg Mean Corpuscular Hemoglobin Concent 34.2 32.0-36.0 g/dL Red Cell Distribution Width 15.1 H 11.8-14.3 % Platelet Count 181 140-450 10^3/uL Mean Platelet Volume 8.4 6.9-10.8 fL Neutrophils (%) (Auto) 59.8 37.0-80.0 % Lymphocytes (%) (Auto) 18.7 10.0-50.0 % Monocytes (%) (Auto) 13.9 H 0.0-12.0 % Eosinophils (%) (Auto) 5.9 0.0-7.0 % Basophils (%) (Auto) 1.7 0.0-2.0 % Neutrophils # (Auto) 3.9 1.6-8.6 10 ^3/uL Lymphocytes # (Auto) 1.2 0.4-5.4 10 ^3/uL Monocytes # (Auto) 0.9 0-1.3 10 ^3/uL Eosinophils # (Auto) 0.4 0-0.8 10 ^3/uL Basophils # (Auto) 0.1 0-0.2 10 ^3/uL Nucleated Red Blood Cells 0.0 % Prothrombin Time 10.3 9.3-11.8 sec Prothrombin Time INR 0.97 0.9-1.15 Activated Partial Thromboplast Time 27.6 24.5-34.5 SEC Urine Color Light-yellow Yellow Urine Clarity Clear Clear Urine pH 5.5 5.0-9.0 Urine Specific [place] 1.010 1.001-1.035 Urine Protein 1+ H Negative Urine Ketones Negative Negative Urine Blood Negative Negative /uL Urine Nitrite Negative Negative Urine Bilirubin Negative Negative Urine Urobilinogen Normal Negative mg/dL Urine Leukocyte Esterase Negative Negative /uL Urine RBC <1 0 - 3 /hpf Urine Microscopic WBC < 1 0-3 /HPF Urine Squamous Epithelial Cells Few <5 /hpf Urine Bacteria None seen None Seen /hpf Urine Glucose Normal Normal mg/dL Sodium Level 140 136-145 mmol/L Potassium Level 4.9 3.5-5.1 mmol/L Chloride Level 112 H 98-107 mmol/L Carbon Dioxide Level 21 20-31 mmol/L Anion Gap 7 5-15 Blood Urea Nitrogen 40 H 9-23 mg/dL Creatinine 2.20 H 0.700-1.30 mg/dL Glomerular Filtration Rate Calc 32 >90 mL/min BUN/Creatinine Ratio 18.2 10.0-20.0 Serum Glucose 102 74-106 mg/dL Calcium Level 10.2 8.7-10.4 mg/dL Total Bilirubin 0.4 0.2-1.0 mg/dL Aspartate Amino Transferase (AST) 22 13-40 U/L Alanine Aminotransferase (ALT) 38 7-40 U/L Alkaline Phosphatase 57 46-116 U/L Total Protein 7.4 5.7-8.2 g/dL Albumin 4.6 3.2-4.8 g/dL Assessment/Plan Assessment/Plan see dictated note Plan discussed with: Patient My Orders Orders - JENNY BILLINGS MD Procedure Category Date Status Time Lactated Ringers 1000 PHA 02/05/25 Verified mL 16:30 2 Gm Sodium Diet DIET 02/05/25 Verified Dinner Allopurinol Tablet PHA 02/06/25 Verified (Zyloprim Tablet) 10:00 Pregabalin Capsule PHA 02/05/25 Verified (Lyrica Capsule) 22:00 Glucose Blood PHA 02/05/25 Verified (Accu-Chek Comfort 17:00 Mild Sliding Scale PHA 02/05/25 Verified 17:00 Dextrose 50% Syringe PHA 02/05/25 Verified 16:30 Alprazolam Tablet PHA 02/05/25 Verified (Xanax Tablet) 16:30 Metoprolol Xl PHA 02/06/25 Verified Succinate (Toprol Xl) 10:00 * Cardiology Consult CONS 02/05/25 Verified 16:30 Complete Blood Count LAB 02/06/25 Verified 06:00 Comprehensive LAB 02/06/25 Verified Metabolic Panel 06:00 Hemoglobin A1c LAB 02/06/25 Verified 06:00 Date of Service: Feb 05, 2025 Billing Provider: JENNY BILLINGS MD Common Visit Codes: [id number] INP/OBS CARE (HIGH) Secondary Visit Codes: [id number] CARE PLAN 30 MINUTES JENNY BILLINGS MD Feb 05, 2025 16:38
[2025-02-05 16:49] VITALS: BP 145/87; PULSE 68; RESP 17; TEMP 97.1; O2SAT 97
--- NOTE | 2025-02-05 16:54 | DVHHP ---
ADMIT DATE: 02/05/2025 HISTORY OF PRESENT ILLNESS: The patient is a 69-year-old gentleman who was admitted after he underwent surgery on the left knee for DJD of the knee. The patient at this time denies any significant pain. No chest pain, no shortness of breath, no nausea or vomiting. Review of rest of systems otherwise currently negative. PAST MEDICAL HISTORY: Significant for gout, diabetes mellitus, chronic kidney disease, hypertension, hyperlipidemia, as well as anxiety. MEDICATIONS: He takes allopurinol, lisinopril, nifedipine, metoprolol, Lyrica, Mounjaro. ALLERGIES: SULFA SOCIAL HISTORY: Denies smoking, alcohol. Lives with a daughter. FAMILY HISTORY: Negative. PHYSICAL EXAMINATION: GENERAL: The patient is awake, alert. VITAL SIGNS: Temperature of 98, pulse of 72 per minute, blood pressure 119/69. SHEENT: Unremarkable. NECK: There is no JVD. LUNGS: Equal bilaterally. No added sounds. CARDIOVASCULAR: S1 and S2 is regular, no murmurs. ABDOMEN: Soft. There is no organomegaly. EXTREMITIES: No pedal edema. NEUROLOGIC: Nonfocal. MUSCULOSKELETAL: The left knee is currently in a dressing. ASSESSMENT AND PLAN: * Diabetes mellitus for which he will be placed on sliding scale insulin. A hemoglobin A1c will be checked. * Hypertension for which blood pressure will be monitored. * Chronic kidney disease stage 3. * Obesity. * Hyperlipidemia. * Gout. * Anxiety. * Status post surgery on the right knee for DJD of the knee for which he will be placed on pain medications and receive physical therapy. * Advanced care planning: The patient is a full cod-Time spent was 19 minutes. MD ROLANDA Mcwilliams/SHAYAN TID: [id number] RECEIPT: [id number] [facility]
[2025-02-05] MEDS: ceFAZolin 1GM/50ML 50 ML IV SCH (17:04)
[2025-02-05] MEDS: InsuLIN REG 1unit/0.01ml Soln (100units/ml) SC SCH (17:16)
[2025-02-05] MEDS: ACCU-CHEK COMFORT CURVE STRIP VI SCH (17:16)
[2025-02-05] MEDS ORDERED: COLC1CAP PO (18:25)
[2025-02-05] MEDS ORDERED: METO1TAB9 PO (18:25)
[2025-02-05 20:00] VITALS: PULSE 87
[2025-02-05 21:00] VITALS: BP 156/88; PULSE 76; RESP 20; TEMP 97.6; O2SAT 97
[2025-02-05] MEDS: PREGABALIN 25 MG CAP PO SCH (22:24)
[2025-02-06] VITALS (8 sets, daily range): BP systolic 135–157; BP diastolic 65–93; PULSE 72–105; RESP 18–20; TEMP 97.7–98; O2SAT 94–100
[2025-02-06 06:08] LABS: Basophils # (auto) 0 10 ^3/uL (0-0.2); Basophils % (auto) 0.1 % (0.0-2.0); Eosinophils # (auto) 0 10 ^3/uL (0-0.8); Hematocrit 36.9 % (41.0-53.0); Hemoglobin 12.8 g/dL (13.5-17.5); Lymphocytes # (auto) 0.5 10 ^3/uL (0.4-5.4); Lymphocytes % (auto) 5.7 % (10.0-50.0); Mean Corpuscular Hemoglobin 31.5 pg (28.0-32.0); Mean Corpuscular Hgb Conc. 34.6 g/dL (32.0-36.0); Mean Corpuscular Volume 90.9 fL (80.0-100.0); Monocytes # (auto) 1.5 10 ^3/uL (0-1.3); Neutrophils # (auto) 7.2 10 ^3/uL (1.6-8.6); Neutrophils % (auto) 78.2 % (37.0-80.0); Platelet Count (auto) 171 10^3/uL (140-450); Red Blood Cells 4.06 10^6/uL (4.5-5.90); White Blood Cell 9.2 10^3/uL (4.4-10.8)
[2025-02-06 06:27] LABS: Alanine Aminotransferase 30 U/L (7-40); Albumin 4.2 g/dL (3.2-4.8); Alkaline Phosphatase 52 U/L (46-116); Calcium 9.6 mg/dL (8.7-10.4); Carbon Dioxide 21 mmol/L (20-31); Chloride 105 mmol/L (98-107)
[2025-02-06 06:28] LABS: Anion Gap 11 (5-15); Bilirubin, Total 0.5 mg/dL (0.2-1.0); Potassium 4.7 mmol/L (3.5-5.1); Sodium 137 mmol/L (136-145); Total Protein 6.7 g/dL (5.7-8.2)
[2025-02-06 06:43] LABS: Aspartate Aminotransferase 88 U/L (13-40); Blood Urea Nitrogen 30 mg/dL (9-23); Glucose 140 mg/dL (74-106)
--- NOTE | 2025-02-06 08:00 | DVHPN2 ---
Progress Note Date Seen: Feb 06, 2025 Medical Necessity Reason Pt with a Central, PICC or Fol: No Subjective Patient reports: No new complaints Objective vital signs Vital Sign Date Time Temp Pulse Resp B/P (MAP) Pulse Ox O2 Delivery O2 Flow Rate FiO2 02/06/25 05:00 97.8 77 19 155/85 (108) 96 97.8 02/05/25 20:00 Room Air* 0 21 Total Intake and Output 02/05/25 02/05/25 02/06/25 15:00 23:00 07:00 Intake Total 300 ml 200 ml Balance 300 ml 200 ml medications Current Medications Medications Dose Ordered Sig/Juventino Route Start Time Stop Time Status Last Admin Dose Admin Acetaminophen 650 mg Q6HP PRN PO 02/05/25 08:45 Oxycodone/ Acetaminophen 1 tab Q4HP PRN PO 02/05/25 08:45 02/05/25 23:35 1 TAB Hydromorphone HCl 1 mg Q2HP PRN IV 02/05/25 08:45 02/06/25 03:34 1 MG Ondansetron HCl 4 mg Q6HP PRN IV 02/05/25 08:45 Docusate Sodium 100 mg Q12HR PO 02/05/25 10:00 02/05/25 22:23 100 MG Nitroglycerin 0.4 mg Q5MINP PRN SL 02/05/25 08:45 Morphine Sulfate 2 mg Q30M PRN IV 02/05/25 08:45 Lactated Ringer's 1,000 ml @ 75 mls/hr [id number] IV 02/05/25 16:30 02/05/25 17:04 75 MLS/HR Allopurinol 200 mg DAILY PO 02/06/25 10:00 Pregabalin 100 mg BID PO 02/05/25 22:00 02/05/25 22:24 100 MG Diagnostic Test (Pha) 1 strip ACHS 02/05/25 17:00 02/06/25 06:32 1 STRIP Insulin Human Regular ACHS SC 02/05/25 17:00 02/06/25 06:35 2 UNITS Dextrose 50 ml UD PRN IV 02/05/25 16:30 Alprazolam 0.25 mg Q8HP PRN PO 02/05/25 16:30 Metoprolol Succinate 25 mg DAILY PO 02/06/25 10:00 Examination: GENERAL:Normal, MSK:Abnormal laboratory and microbiology Laboratory Tests 02/06/25 05:33 Test 02/06/25 05:33 Range/Units Serum Glucose 140 H 74-106 mg/dL Problem List/Assessment/Plan Problem List/Assessment/Plan 69 year old male who is s/p Right TKA POD 1 1. WBAT RLE with walker 2. CPM as ordered 3. Physical therapy 4. Pain control 5. d/c planning for SNF (patient and provider requesting [facility]) Plan discussed with: Patient My Orders My Orders Orders - HERB ROLDAN NP Procedure Category Date Status Time Admit ADMIT 02/05/25 Transmitted 08:32 Patient Condition COMORDER 02/05/25 Transmitted Stable 08:32 R Knee 3v Xray XY 02/05/25 Resulted 08:32 Hemoglobin & LAB 02/07/25 Verified Hematocrit 07:00 Hemoglobin & LAB 02/08/25 Verified Hematocrit 07:00 Vital Signs ELVA 02/05/25 In Process 08:32 Weight-Bearing ELVA 02/05/25 In Process Restrictions 08:32 Acetaminophen Tablet PHA 02/05/25 In Process (Tylenol Tablet) 08:45 Oxycodone W/ Acet PHA 02/05/25 In Process 5/325mg Tab (Percocet 08:45 Hydromorphone PHA 02/05/25 In Process Injection (Dilaudid 08:45 Ondansetron Hcl PHA 02/05/25 In Process (Zofran) 08:45 Docusate Sodium PHA 02/05/25 In Process Capsule (Colace 10:00 CPM PT 02/05/25 Transmitted 08:32 Pt Request For Service PT 02/05/25 Logged 08:32 Call/Page ELVA 02/05/25 In Process Hospitalist/Atten Fo 08:32 Cpm Machine To ELVA 02/05/25 In Process Operative Leg 08:32 Incentive Spirometry ORDERS 02/05/25 Transmitted 08:32 Nitroglycerin PHA 02/05/25 In Process Sublingual (Ntrostat 08:45 Morphine Sulfate PHA 02/05/25 In Process Injection 08:45 Stat Ekg For Chest ELVA 02/05/25 In Process Pain 08:32 Notify Of Changes ELVA 02/05/25 In Process From Base 08:32 Sales Communications Manager For ELVA 02/05/25 In Process 24 Hours 08:32 Emergency Dysrhythmia ELVA 02/05/25 In Process Protocol 08:32 Rhythm Strips Once ELVA 02/05/25 In Process Every Shift 08:32 Oxygen By Nasal RT 02/05/25 Transmitted Cannula 08:32 * Hospitalist Consult CONS 02/05/25 Transmitted Date of Service: Feb 06, 2025 Billing Provider: XUAN WARE MD Common Visit Codes: NOT BILLABLE HERB ROLDAN NP Feb 06, 2025 08:00
[2025-02-06] MEDS: ALLOPURINOL 100 MG TAB PO SCH (09:20)
[2025-02-06] MEDS: METOPROLOL SUCCINATE XL 50 MG TAB PO SCH (09:22)
--- NOTE | 2025-02-06 12:52 | DVHPN2 ---
Progress Note Date Seen: Feb 06, 2025 Medical Necessity Reason Pt with a Central, PICC or Fol: No Subjective Patient reports: No new complaints Review of Systems: HEENT:Normal, CVS:Normal, RESPIRATORY:Normal, GI:Normal, :Normal, MSK:Normal, NEURO:Normal Objective vital signs Vital Sign Date Time Temp Pulse Resp B/P (MAP) Pulse Ox O2 Delivery O2 Flow Rate FiO2 02/06/25 09:34 72 19 148/68 02/06/25 09:00 97.8 95 97.8 02/06/25 08:00 Room Air* 0 21 Total Intake and Output 02/05/25 02/05/25 02/06/25 15:00 23:00 07:00 Intake Total 300 ml 200 ml Balance 300 ml 200 ml medications Current Medications Medications Dose Ordered Sig/Juventino Route Start Time Stop Time Status Last Admin Dose Admin Acetaminophen 650 mg Q6HP PRN PO 02/05/25 08:45 Oxycodone/ Acetaminophen 1 tab Q4HP PRN PO 02/05/25 08:45 02/05/25 23:35 1 TAB Hydromorphone HCl 1 mg Q2HP PRN IV 02/05/25 08:45 02/06/25 09:34 1 MG Ondansetron HCl 4 mg Q6HP PRN IV 02/05/25 08:45 Docusate Sodium 100 mg Q12HR PO 02/05/25 10:00 02/06/25 09:19 100 MG Nitroglycerin 0.4 mg Q5MINP PRN SL 02/05/25 08:45 Morphine Sulfate 2 mg Q30M PRN IV 02/05/25 08:45 Lactated Ringer's 1,000 ml @ 75 mls/hr [id number] IV 02/05/25 16:30 02/05/25 17:04 75 MLS/HR Allopurinol 200 mg DAILY PO 02/06/25 10:00 02/06/25 09:20 200 MG Pregabalin 100 mg BID PO 02/05/25 22:00 02/06/25 09:30 100 MG Diagnostic Test (Pha) 1 strip ACHS 02/05/25 17:00 02/06/25 11:30 1 STRIP Insulin Human Regular ACHS SC 02/05/25 17:00 02/06/25 06:35 2 UNITS Dextrose 50 ml UD PRN IV 02/05/25 16:30 Alprazolam 0.25 mg Q8HP PRN PO 02/05/25 16:30 Metoprolol Succinate 25 mg DAILY PO 02/06/25 10:00 02/06/25 09:22 25 MG Examination: GENERAL:Normal, HEENT:Normal, NECK:Normal, LUNGS:Normal, CVS:Normal, ABDOMEN:Normal, MSK:Normal, MSK:Abnormal (right knee dressing), SKIN:Normal, NEURO:Normal, :Normal laboratory and microbiology Laboratory Tests 02/06/25 05:33 Test 02/06/25 05:33 Range/Units Serum Glucose 140 H 74-106 mg/dL Problem List/Assessment/Plan Problem List/Assessment/Plan * Diabetes mellitus for which he will be placed on sliding scale insulin. A hemoglobin A1c will be checked. * Hypertension for which blood pressure will be monitored. * Chronic kidney disease stage 3. * Obesity. * Hyperlipidemia. * Gout. * Anxiety. * Status post surgery on the right knee for DJD of the knee for which he will be placed on pain medications and receive physical therapy. * Advanced care planning: The patient is a full code-Time spent was 19 minutes. Plan discussed with: Patient My Orders My Orders Orders - JENNY BILLINGS MD Procedure Category Date Status Time Lactated Ringer's PHA 02/05/25 In Process 16:30 2 Gm Sodium Diet DIET 02/05/25 Transmitted Dinner Allopurinol Tablet PHA 02/06/25 In Process (Zyloprim Tablet) 10:00 Pregabalin Capsule PHA 02/05/25 In Process (Lyrica Capsule) 22:00 Glucose Blood PHA 02/05/25 In Process (Accu-Chek Comfort 17:00 Insulin R (Human) PHA 02/05/25 In Process (Insulin R) 17:00 Dextrose 50% Syringe PHA 02/05/25 In Process 16:30 Alprazolam Tablet PHA 02/05/25 In Process (Xanax Tablet) 16:30 Metoprolol Xl PHA 02/06/25 In Process Succinate (Toprol Xl) 10:00 * Cardiology Consult CONS 02/05/25 Transmitted 16:30 Date of Service: Feb 06, 2025 Billing Provider: JENNY BILLINGS MD Common Visit Codes: [id number] INP/OBS CARE(HIGH) Secondary Visit Codes: [id number] CARE PLAN 30 MINUTES JENNY BILLINGS MD Feb 06, 2025 12:52
[2025-02-07] VITALS (8 sets, daily range): BP systolic 120–152; BP diastolic 68–80; PULSE 72–82; RESP 17–19; TEMP 97.7–98.4; O2SAT 94–100
[2025-02-07 07:03] LABS: Hemoglobin 12.1 g/dL (13.5-17.5)
--- NOTE | 2025-02-07 07:58 | DVHPN2 ---
Progress Note Date Seen: Feb 07, 2025 Medical Necessity Reason Pt with a Central, PICC or Fol: No Subjective Patient reports: No new complaints Objective vital signs Vital Sign Date Time Temp Pulse Resp B/P (MAP) Pulse Ox O2 Delivery O2 Flow Rate FiO2 02/07/25 05:00 97.7 82 18 120/68 (85) 96 97.7 02/06/25 20:00 Room Air* 0 21 Total Intake and Output 02/06/25 02/06/25 02/07/25 15:00 23:00 07:00 Intake Total 120 ml 1150 ml 900 ml Output Total 400 ml 900 ml Balance 120 ml 750 ml 0 ml medications Current Medications Medications Dose Ordered Sig/Juventino Route Start Time Stop Time Status Last Admin Dose Admin Acetaminophen 650 mg Q6HP PRN PO 02/05/25 08:45 Oxycodone/ Acetaminophen 1 tab Q4HP PRN PO 02/05/25 08:45 02/06/25 20:30 1 TAB Hydromorphone HCl 1 mg Q2HP PRN IV 02/05/25 08:45 02/07/25 01:49 1 MG Ondansetron HCl 4 mg Q6HP PRN IV 02/05/25 08:45 Docusate Sodium 100 mg Q12HR PO 02/05/25 10:00 02/06/25 21:48 100 MG Nitroglycerin 0.4 mg Q5MINP PRN SL 02/05/25 08:45 Morphine Sulfate 2 mg Q30M PRN IV 02/05/25 08:45 Lactated Ringer's 1,000 ml @ 75 mls/hr [id number] IV 02/05/25 16:30 02/05/25 17:04 75 MLS/HR Allopurinol 200 mg DAILY PO 02/06/25 10:00 02/06/25 09:20 200 MG Pregabalin 100 mg BID PO 02/05/25 22:00 02/06/25 21:48 100 MG Diagnostic Test (Pha) 1 strip ACHS 02/05/25 17:00 02/07/25 06:26 1 STRIP Insulin Human Regular ACHS SC 02/05/25 17:00 02/06/25 21:54 3 UNITS Dextrose 50 ml UD PRN IV 02/05/25 16:30 Alprazolam 0.25 mg Q8HP PRN PO 02/05/25 16:30 Metoprolol Succinate 25 mg DAILY PO 02/06/25 10:00 02/06/25 09:22 25 MG Examination: GENERAL:Normal, MSK:Abnormal laboratory and microbiology Laboratory Tests 02/07/25 06:30 02/06/25 05:33 Test 02/06/25 05:33 Range/Units Serum Glucose 140 H 74-106 mg/dL Problem List/Assessment/Plan Problem List/Assessment/Plan 69 year old male who is s/p Right TKA POD 2 1. WBAT RLE with walker 2. CPM as ordered 3. Physical therapy 4. Pain control 5. follow up in 2 weeks on 02/22/2025 at 10:45 as scheduled 6. clear for discharge from orthopedic standpoint rec d/c planning for SNF (patient and provider requesting [facility]) with the following discharge recommendations: Total Knee Arthroplasty Discharge Instructions Wound Care 1. You will likely have a gel-type dressing over your wound, you may keep this on for 7-14 days after leaving the hospital until your first post-op visit, unless it becomes soiled or your skin becomes irritated. If a wound vac dressing is placed on your knee this is to be left in place for one week and will be changed as needed. After your remove the dressing or wound vac, the home health nurse may place clean dry dressing over your wound. Keep wound covered, clean and dry for two weeks. 2. [place] will be removed during your initial post-op visit. If you have concerns about our wound, please call the office immediately. If nervous about staple removal can take pain pill one hour prior to appointment. 3. If there is drainage from your wound, change the dressing daily until it stops. If drainage lasts more than 10 days, call our office. 4. Low grade (up to 100 degrees) fever is common for the first week after surgery. You should take your temperature daily. If you have fevers of 101 or more, please call the office. Medication Management 1. You will be discharged with pain medication, a blood thinner (unless you were previously on a blood thinner prior to surgery) and stool softener. Please follow the instructions regarding these medications as provided by your nurse at the hospital upon discharge. 2. Blood clots in the leg are a known complication of surgery. It is very important that you take the medication to protect against clots. Depending on what you are discharged on typically it is Lovenox 40mg daily for 2 weeks or Aspirin 81mg twice daily for 4 weeks. After you finish this, you should then take baby Aspirin (81mg) once daily for 2 weeks. 3. You should restart all of your prescription medications once discharged from the hospital/surgery center unless specifically instructed otherwise. 4. Herbal supplements may be restarted 2 weeks after surgery. 5. If you have been given Coumadin as a blood thinner, please follow up with your mediator during the first two weeks after surgery to review medications and overall medical well-being. 6. Please note that narcotic pain medication may cause constipation. Please remember to take stool softeners (Colace) when using narcotics to help reduce the change of constipation. You should not use alcohol together with narcotic medication. Activity [employer] [facility] [employer] Instructions 1. Driving is not permitted within the first 2 weeks. 2. Your first postoperative visit will take place 2 weeks after discharge. Please call the office once you are home from the hospital to arrange this appointment. 3. Antibiotic preventative treatment is required before dental or other invasive procedures. Please ask your surgeon about this at your first postoperative visit. If you experience chest pain, shortness of breath or severe painful calf swelling, go to the nearest emergency room to be evaluated. Please call our office once your situation is stabilized. Plan discussed with: Patient My Orders My Orders Orders - HERB ROLDAN NP Procedure Category Date Status Time * County Records Management Officer CONS 02/06/25 Transmitted Consult Date of Service: Feb 07, 2025 Billing Provider: XUAN WARE MD Common Visit Codes: NOT BILLABLE HERB ROLDAN NP Feb 07, 2025 07:58
--- NOTE | 2025-02-07 12:52 | DVHPN2 ---
Progress Note - Dictate Date Seen: Feb 06, 2025 Medical Necessity Reason Pt with a Central, PICC or Fol: No Subjective PT S/P RIGHT KNEE REPLACEMENT HTN HYPERLIPIDEMIA METABOLIC SYNDROME OBESITY DIABETES VASCULOPATHY NEUROPATHY NEPHROPATHY CKD III GOUT HX OF AFIB WITH HYPERCOAGULABLE STATE vital signs Vital Sign Date Time Temp Pulse Resp B/P (MAP) Pulse Ox O2 Delivery O2 Flow Rate FiO2 02/07/25 12:39 98.0 77 19 133/72 (92) 95 98.0 02/07/25 08:00 Room Air* 0 21 Total Intake and Output 02/06/25 02/06/25 02/07/25 15:00 23:00 07:00 Intake Total 120 ml 1150 ml 900 ml Output Total 400 ml 900 ml Balance 120 ml 750 ml 0 ml medications Current Medications Medications Dose Ordered Sig/Juventino Route Start Time Stop Time Status Last Admin Dose Admin Acetaminophen 650 mg Q6HP PRN PO 02/05/25 08:45 Oxycodone/ Acetaminophen 1 tab Q4HP PRN PO 02/05/25 08:45 02/07/25 08:43 1 TAB Hydromorphone HCl 1 mg Q2HP PRN IV 02/05/25 08:45 02/07/25 12:17 1 MG Ondansetron HCl 4 mg Q6HP PRN IV 02/05/25 08:45 Docusate Sodium 100 mg Q12HR PO 02/05/25 10:00 02/07/25 08:42 100 MG Nitroglycerin 0.4 mg Q5MINP PRN SL 02/05/25 08:45 Morphine Sulfate 2 mg Q30M PRN IV 02/05/25 08:45 Lactated Ringer's 1,000 ml @ 75 mls/hr [id number] IV 02/05/25 16:30 02/05/25 17:04 75 MLS/HR Allopurinol 200 mg DAILY PO 02/06/25 10:00 02/07/25 08:43 200 MG Pregabalin 100 mg BID PO 02/05/25 22:00 02/07/25 12:16 100 MG Diagnostic Test (Pha) 1 strip ACHS 02/05/25 17:00 02/07/25 11:30 1 STRIP Insulin Human Regular ACHS SC 02/05/25 17:00 02/06/25 21:54 3 UNITS Dextrose 50 ml UD PRN IV 02/05/25 16:30 Alprazolam 0.25 mg Q8HP PRN PO 02/05/25 16:30 Metoprolol Succinate 25 mg DAILY PO 02/06/25 10:00 02/07/25 08:44 25 MG laboratory and microbiology Laboratory Tests 02/07/25 06:30 02/06/25 05:33 Test 02/06/25 05:33 Range/Units Serum Glucose 140 H 74-106 mg/dL Problem List S/P RIGHT KNEE REPLACEMENT HTN HYPERLIPIDEMIA METABOLIC SYNDROME OBESITY DIABETES VASCULOPATHY NEUROPATHY NEPHROPATHY CKD III GOUT HX OF AFIB WITH HYPERCOAGULABLE STATE Assessment/Plan ABX PHYSICAL THERAPY SSI RESUME ANTI COAGULATION Plan discussed with: Patient RAOUL MELTON MD Feb 07, 2025 12:52
--- NOTE | 2025-02-07 12:54 | DVHPN2 ---
Progress Note - Dictate Date Seen: Feb 07, 2025 Medical Necessity Reason Pt with a Central, PICC or Fol: No Subjective PT S/P RIGHT KNEE REPLACEMENT HTN HYPERLIPIDEMIA METABOLIC SYNDROME OBESITY DIABETES VASCULOPATHY NEUROPATHY NEPHROPATHY CKD III GOUT HX OF AFIB WITH HYPERCOAGULABLE STATE vital signs Vital Sign Date Time Temp Pulse Resp B/P (MAP) Pulse Ox O2 Delivery O2 Flow Rate FiO2 02/07/25 12:39 98.0 77 19 133/72 (92) 95 98.0 02/07/25 08:00 Room Air* 0 21 Total Intake and Output 02/06/25 02/06/25 02/07/25 15:00 23:00 07:00 Intake Total 120 ml 1150 ml 900 ml Output Total 400 ml 900 ml Balance 120 ml 750 ml 0 ml medications Current Medications Medications Dose Ordered Sig/Juventino Route Start Time Stop Time Status Last Admin Dose Admin Acetaminophen 650 mg Q6HP PRN PO 02/05/25 08:45 Oxycodone/ Acetaminophen 1 tab Q4HP PRN PO 02/05/25 08:45 02/07/25 08:43 1 TAB Hydromorphone HCl 1 mg Q2HP PRN IV 02/05/25 08:45 02/07/25 12:17 1 MG Ondansetron HCl 4 mg Q6HP PRN IV 02/05/25 08:45 Docusate Sodium 100 mg Q12HR PO 02/05/25 10:00 02/07/25 08:42 100 MG Nitroglycerin 0.4 mg Q5MINP PRN SL 02/05/25 08:45 Morphine Sulfate 2 mg Q30M PRN IV 02/05/25 08:45 Lactated Ringer's 1,000 ml @ 75 mls/hr [id number] IV 02/05/25 16:30 02/05/25 17:04 75 MLS/HR Allopurinol 200 mg DAILY PO 02/06/25 10:00 02/07/25 08:43 200 MG Pregabalin 100 mg BID PO 02/05/25 22:00 02/07/25 12:16 100 MG Diagnostic Test (Pha) 1 strip ACHS 02/05/25 17:00 02/07/25 11:30 1 STRIP Insulin Human Regular ACHS SC 02/05/25 17:00 02/06/25 21:54 3 UNITS Dextrose 50 ml UD PRN IV 02/05/25 16:30 Alprazolam 0.25 mg Q8HP PRN PO 02/05/25 16:30 Metoprolol Succinate 25 mg DAILY PO 02/06/25 10:00 02/07/25 08:44 25 MG laboratory and microbiology Laboratory Tests 02/07/25 06:30 02/06/25 05:33 Test 02/06/25 05:33 Range/Units Serum Glucose 140 H 74-106 mg/dL Problem List S/P RIGHT KNEE REPLACEMENT HTN HYPERLIPIDEMIA METABOLIC SYNDROME OBESITY DIABETES VASCULOPATHY NEUROPATHY NEPHROPATHY CKD III GOUT HX OF AFIB WITH HYPERCOAGULABLE STATE Assessment/Plan ABX PHYSICAL THERAPY SSI RESUME ANTI COAGULATION H/H STABLE CR 1.88 RESUME DVT PROPHYLAXIS Plan discussed with: Patient RAOUL MELTON MD Feb 07, 2025 12:54
--- NOTE | 2025-02-07 12:55 | DVHPN2 ---
Progress Note - Dictate Date Seen: Feb 07, 2025 Medical Necessity Reason Pt with a Central, PICC or Fol: No Subjective PT S/P RIGHT KNEE REPLACEMENT HTN HYPERLIPIDEMIA METABOLIC SYNDROME OBESITY DIABETES VASCULOPATHY NEUROPATHY NEPHROPATHY CKD III GOUT HX OF AFIB WITH HYPERCOAGULABLE STATE vital signs Vital Sign Date Time Temp Pulse Resp B/P (MAP) Pulse Ox O2 Delivery O2 Flow Rate FiO2 02/07/25 12:39 98.0 77 19 133/72 (92) 95 98.0 02/07/25 08:00 Room Air* 0 21 Total Intake and Output 02/06/25 02/06/25 02/07/25 15:00 23:00 07:00 Intake Total 120 ml 1150 ml 900 ml Output Total 400 ml 900 ml Balance 120 ml 750 ml 0 ml medications Current Medications Medications Dose Ordered Sig/Juventino Route Start Time Stop Time Status Last Admin Dose Admin Acetaminophen 650 mg Q6HP PRN PO 02/05/25 08:45 Oxycodone/ Acetaminophen 1 tab Q4HP PRN PO 02/05/25 08:45 02/07/25 08:43 1 TAB Hydromorphone HCl 1 mg Q2HP PRN IV 02/05/25 08:45 02/07/25 12:17 1 MG Ondansetron HCl 4 mg Q6HP PRN IV 02/05/25 08:45 Docusate Sodium 100 mg Q12HR PO 02/05/25 10:00 02/07/25 08:42 100 MG Nitroglycerin 0.4 mg Q5MINP PRN SL 02/05/25 08:45 Morphine Sulfate 2 mg Q30M PRN IV 02/05/25 08:45 Lactated Ringer's 1,000 ml @ 75 mls/hr [id number] IV 02/05/25 16:30 02/05/25 17:04 75 MLS/HR Allopurinol 200 mg DAILY PO 02/06/25 10:00 02/07/25 08:43 200 MG Pregabalin 100 mg BID PO 02/05/25 22:00 02/07/25 12:16 100 MG Diagnostic Test (Pha) 1 strip ACHS 02/05/25 17:00 02/07/25 11:30 1 STRIP Insulin Human Regular ACHS SC 02/05/25 17:00 02/06/25 21:54 3 UNITS Dextrose 50 ml UD PRN IV 02/05/25 16:30 Alprazolam 0.25 mg Q8HP PRN PO 02/05/25 16:30 Metoprolol Succinate 25 mg DAILY PO 02/06/25 10:00 02/07/25 08:44 25 MG laboratory and microbiology Laboratory Tests 02/07/25 06:30 02/06/25 05:33 Test 02/06/25 05:33 Range/Units Serum Glucose 140 H 74-106 mg/dL Problem List S/P RIGHT KNEE REPLACEMENT HTN HYPERLIPIDEMIA METABOLIC SYNDROME OBESITY DIABETES VASCULOPATHY NEUROPATHY NEPHROPATHY CKD III GOUT HX OF AFIB WITH HYPERCOAGULABLE STATE Assessment/Plan ABX PHYSICAL THERAPY SSI RESUME ANTI COAGULATION H/H STABLE CR 1.88 RESUME DVT PROPHYLAXIS WEIGHT LOSS COUNSELLING RAOUL MELTON MD Feb 07, 2025 12:55
--- NOTE | 2025-02-07 14:41 | DVHPN2 ---
Progress Note Date Seen: Feb 07, 2025 Medical Necessity Reason Pt with a Central, PICC or Fol: No Subjective Patient reports: No new complaints Review of Systems: HEENT:Normal, CVS:Normal, RESPIRATORY:Normal, GI:Normal, :Normal, MSK:Normal, NEURO:Normal Objective vital signs Vital Sign Date Time Temp Pulse Resp B/P (MAP) Pulse Ox O2 Delivery O2 Flow Rate FiO2 02/07/25 12:39 98.0 77 19 133/72 (92) 95 98.0 02/07/25 08:00 Room Air* 0 21 Total Intake and Output 02/06/25 02/06/25 02/07/25 15:00 23:00 07:00 Intake Total 120 ml 1150 ml 900 ml Output Total 400 ml 900 ml Balance 120 ml 750 ml 0 ml medications Current Medications Medications Dose Ordered Sig/Juventino Route Start Time Stop Time Status Last Admin Dose Admin Acetaminophen 650 mg Q6HP PRN PO 02/05/25 08:45 Oxycodone/ Acetaminophen 1 tab Q4HP PRN PO 02/05/25 08:45 02/07/25 08:43 1 TAB Hydromorphone HCl 1 mg Q2HP PRN IV 02/05/25 08:45 02/07/25 12:17 1 MG Ondansetron HCl 4 mg Q6HP PRN IV 02/05/25 08:45 Docusate Sodium 100 mg Q12HR PO 02/05/25 10:00 02/07/25 08:42 100 MG Nitroglycerin 0.4 mg Q5MINP PRN SL 02/05/25 08:45 Morphine Sulfate 2 mg Q30M PRN IV 02/05/25 08:45 Lactated Ringer's 1,000 ml @ 75 mls/hr [id number] IV 02/05/25 16:30 02/05/25 17:04 75 MLS/HR Allopurinol 200 mg DAILY PO 02/06/25 10:00 02/07/25 08:43 200 MG Pregabalin 100 mg BID PO 02/05/25 22:00 02/07/25 12:16 100 MG Diagnostic Test (Pha) 1 strip ACHS 02/05/25 17:00 02/07/25 11:30 1 STRIP Insulin Human Regular ACHS SC 02/05/25 17:00 02/06/25 21:54 3 UNITS Dextrose 50 ml UD PRN IV 02/05/25 16:30 Alprazolam 0.25 mg Q8HP PRN PO 02/05/25 16:30 Metoprolol Succinate 25 mg DAILY PO 02/06/25 10:00 02/07/25 08:44 25 MG Examination: GENERAL:Normal, HEENT:Normal, NECK:Normal, LUNGS:Normal, CVS:Normal, ABDOMEN:Normal, MSK:Normal, MSK:Abnormal (RIGHT KNEE DRESSING), SKIN:Normal, NEURO:Normal, :Normal laboratory and microbiology Laboratory Tests 02/07/25 06:30 02/06/25 05:33 Test 02/06/25 05:33 Range/Units Serum Glucose 140 H 74-106 mg/dL Problem List/Assessment/Plan Problem List/Assessment/Plan * Diabetes mellitus for which he will be placed on sliding scale insulin. A hemoglobin A1c will be checked. * Hypertension for which blood pressure will be monitored. * Chronic kidney disease stage 3. * Obesity. * Hyperlipidemia. * Gout. * Anxiety. * Status post surgery on the right knee for DJD of the knee for which he will be placed on pain medications and receive physical therapy. * Advanced care planning: The patient is a full code-Time spent was 19 minutes. Plan discussed with: Patient Date of Service: Feb 07, 2025 Billing Provider: JENNY BILLINGS MD Common Visit Codes: [id number] INP/OBS CARE(HIGH) JENNY BILLINGS MD Feb 07, 2025 14:41
[2025-02-08 01:00] VITALS: BP 129/68; PULSE 74; RESP 20; TEMP 98.8; O2SAT 93
[2025-02-08 05:00] VITALS: BP 138/68; PULSE 69; RESP 20; TEMP 97.9; O2SAT 94
[2025-02-08 06:37] LABS: Hemoglobin 13.3 g/dL (13.5-17.5)
[2025-02-08 08:00] VITALS: PULSE 75; RESP 20; O2SAT 95
[2025-02-08 09:21] VITALS: BP 111/62; PULSE 75; RESP 20; TEMP 97.6; O2SAT 94
--- NOTE | 2025-02-08 10:05 | DVHDS2 ---
Discharge Summary Date of Admission Feb 05, 2025 at 08:32 Date of Discharge: Feb 08, 2025 Labs/Diagnostic Data: Laboratory Results Test 02/08/25 06:00 02/08/25 05:59 02/06/25 05:33 02/02/25 12:30 Hemoglobin 13.3 g/dL (13.5-17.5) Hematocrit 38.0 % (41.0-53.0) POC Glucose 121 mg/dl (70-106) White Blood Count 9.2 10^3/uL (4.4-10.8) Red Blood Count 4.06 10^6/uL (4.5-5.90) Mean Corpuscular Volume 90.9 fL (80.0-100.0) Mean Corpuscular Hemoglobin 31.5 pg (28.0-32.0) Mean Corpuscular Hemoglobin Concent 34.6 g/dL (32.0-36.0) Red Cell Distribution Width 15.0 % (11.8-14.3) Platelet Count 171 10^3/uL (140-450) Mean Platelet Volume 8.0 fL (6.9-10.8) Neutrophils (%) (Auto) 78.2 % (37.0-80.0) Lymphocytes (%) (Auto) 5.7 % (10.0-50.0) Monocytes (%) (Auto) 16.0 % (0.0-12.0) Eosinophils (%) (Auto) 0.0 % (0.0-7.0) Basophils (%) (Auto) 0.1 % (0.0-2.0) Neutrophils # (Auto) 7.2 10 ^3/uL (1.6-8.6) Lymphocytes # (Auto) 0.5 10 ^3/uL (0.4-5.4) Monocytes # (Auto) 1.5 10 ^3/uL (0-1.3) Eosinophils # (Auto) 0 10 ^3/uL (0-0.8) Basophils # (Auto) 0 10 ^3/uL (0-0.2) Nucleated Red Blood Cells 0.0 % Sodium Level 137 mmol/L (136-145) Potassium Level 4.7 mmol/L (3.5-5.1) Chloride Level 105 mmol/L (98-107) Carbon Dioxide Level 21 mmol/L (20-31) Anion Gap 11 (5-15) Blood Urea Nitrogen 30 mg/dL (9-23) Creatinine 1.88 mg/dL (0.700-1.30) Glomerular Filtration Rate Calc 38 mL/min (>90) BUN/Creatinine Ratio 16.0 (10.0-20.0) Serum Glucose 140 mg/dL (74-106) Hemoglobin A1c 5.3 % A1C (<5.7) Calcium Level 9.6 mg/dL (8.7-10.4) Total Bilirubin 0.5 mg/dL (0.2-1.0) Aspartate Amino Transferase (AST) 88 U/L (13-40) Alanine Aminotransferase (ALT) 30 U/L (7-40) Alkaline Phosphatase 52 U/L (46-116) Total Protein 6.7 g/dL (5.7-8.2) Albumin 4.2 g/dL (3.2-4.8) Prothrombin Time 10.3 sec (9.3-11.8) Prothrombin Time INR 0.97 (0.9-1.15) Activated Partial Thromboplast Time 27.6 SEC (24.5-34.5) Urine Color Light-yellow (Yellow) Urine Clarity Clear (Clear) Urine pH 5.5 (5.0-9.0) Urine Specific [place] 1.010 (1.001-1.035) Urine Protein 1+ (Negative) Urine Ketones Negative (Negative) Urine Blood Negative /uL (Negative) Urine Nitrite Negative (Negative) Urine Bilirubin Negative (Negative) Urine Urobilinogen Normal mg/dL (Negative) Urine Leukocyte Esterase Negative /uL (Negative) Urine RBC <1 /hpf (0 - 3) Urine Microscopic WBC < 1 /HPF (0-3) Urine Squamous Epithelial Cells Few /hpf (<5) Urine Bacteria None seen /hpf (None Seen) Urine Glucose Normal mg/dL (Normal) Other Laboratory Tests 02/08/25 06:00 02/06/25 05:33 Brief Hx & Hospital Course: see dictated note Condition at Discharge: Fair Final Diagnosis/Problems List right knee surgery Discharge Disposition: [facility] Facility Discharge Instruct/Medications Diet: Cardiac 2g Na,low cholest Activity: No Restrictions, As Tolerated Follow Up/Referral: fu with pcp/ortho Medications: per nov Discharge Statement: "Patient was advised to return to the ER or call 911 if any headaches, dizziness, shortness of breath, chest pain, abdominal pain, bleeding, fevers, or worsening of medical condition. Patient was counseled about treatment plan, medications, possible side effects, patientverbalized understanding. All questions were answered to the best of my ability. This discharge took greater then 30 minutes in planning, reviewing documentation, counseling the patient, and discussing with other team members." ASSESSMENT ASSESSMENT Assessment right knee surgery Date of Service: Feb 08, 2025 Billing Provider: JENNY BILLINGS MD Common Visit Codes: [id number] DISCH DAY >30min JENNY BILLINGS MD Feb 08, 2025 10:05
[2025-02-08] MEDS ORDERED: ENOXAPARIN SOD 40 MG/0.4 ML SYRINGE SC ONE (10:15)
--- NOTE | 2025-02-08 11:00 | DVHDS ---
DATE OF DISCHARGE: 02/08/2025 HISTORY OF PRESENT ILLNESS: The patient is a 69-year-old gentleman who was admitted after he underwent surgery on the right knee for DJD of the knee. The patient has a history of gout, diabetes, chronic kidney disease, hypertension, hyperlipidemia, and anxiety. HOSPITAL COURSE: The patient was seen in Orthopedic consult. The patient was seen in Cardiology consult by Dr. Perales. The patient has done well post surgery. His hemoglobin A1c was 5.3. The patient will now be discharged to a half-way facility with medications as per medication reconciliation. He will follow up with his primary as well as his orthopedic in the next 1-2 weeks. FINAL DIAGNOSES: * Diabetes mellitus. * Hypertension. * CKD stage III. * Obesity. * Hyperlipidemia. * Gout. * Anxiety. * Status post right knee surgery for DJD of the knee. Time spent in discharge planning and review of plan with the patient and nursing and paperwork was 38 minutes. MD ROLANDA Mcwilliams/HERMELINDO/JUSTIN TID: [id number] RECEIPT: [id number]
[2025-02-08 11:40] VITALS: BP 111/62; PULSE 75; RESP 20; TEMP 97.6; O2SAT 95
[2025-02-09] MEDS ORDERED: ENOXAPARIN SOD 40 MG/0.4 ML SYRINGE SC SCH (10:00)
== END 2025-02-08 12:16 | DRG 470 ==
LOC: SUR 06:20 → OVERFLOW 08:32 → TELE-WESTW 15:22 → WEST WING 02-07 14:58
PROVIDERS: ADMIT Internal Medicine; ATTEND Internal Medicine
PROC: 8E0YXBZ Computer Assisted Procedure of Lower Extremity (ICD-10-PCS; 2025-02-05)
PROC: 0SRC0JZ Replacement of Right Knee Joint with Synthetic Substitute, Open Approach (ICD-10-PCS; principal; 2025-02-05 07:47)
DX: M17.11 Unilateral primary osteoarthritis, right knee (principal); E66.9 Obesity, unspecified; E78.5 Hyperlipidemia, unspecified; F41.9 Anxiety disorder, unspecified; M10.9 Gout, unspecified; N18.30 Chronic kidney disease, stage 3 unspecified; E88.810 Metabolic syndrome; E11.22 Type 2 diabetes mellitus with diabetic chronic kidney disease; I12.9 Hypertensive chronic kidney disease with stage 1 through stage 4 chronic kidney disease, or unspecified chronic kidney disease; E11.40 Type 2 diabetes mellitus with diabetic neuropathy, unspecified; I48.91 Unspecified atrial fibrillation; Z83.3 Family history of diabetes mellitus; Z82.49 Family history of ischemic heart disease and other diseases of the circulatory system; Z68.36 Body mass index [BMI] 36.0-36.9, adult; Z79.899 Other long term (current) drug therapy
CPT/HCPCS: 36415; 73562; 80053; 81001; 82962; 83036; 85014; 85018; 85025; 85610; 85730; 86850; 86900; 86901; 97110; 97116; 97163; G0378; J0131; J1815; J1885; J2250; J2704; J3490